=== PATIENT | female | born 1950 | race Caucasian/White ===

== ENCOUNTER 2016-06-12 15:27 | Emergency (ER) | payer MEDICARE, OTHER ==
[~2016-06-12] VITALS: Ht 167.6 cm; Wt 60.8 kg
[~2016-06-12 15:27] MED LIST: ALPR2TAB PO; ATEN-39 PO; ESCI20TA30 PO; IBAN150T3 PO; LITH300T4 PO; TRAZ-56 PO; [UNRECOGNIZED DRUG - CODE] IM; [UNRECOGNIZED DRUG - CODE] PO
[2016-06-12 15:30] VITALS: Ht 167.6 cm; Wt 60.8 kg
--- OUTSIDE RECORDS SUMMARY | 2016-06-12 15:33 | XMS REPORT | Referral Summary ---
Author Author [facility] Organization [facility] Address Unknown Phone Unavailable Care Team Providers Care Supply Assistant Name Role Phone Earl Landa Primary Care Physician [phone] Encounter VC Date(s): 11/06/14 - 11/06/14 [facility] [address] [place] [id number] Discharge Diagnosis: Skin lesion of left leg Discharge Disposition: 01-Home or Self Care Attending Physician: Valentina Hankins APRN Admitting Physician: Valentina Hankins APRN Vital Signs Most recent to 1 oldest [Reference Range]: Temperature Tympanic 36.8 degC [36.6-38.1 degC] (11/06/14 2:23 PM) Peripheral Pulse 60 bpm Rate [60-100 bpm] (11/06/14 2:23 PM) Blood Pressure 104/66 mmHg [90-140/60-90 mmHg] (11/06/14 2:23 PM) Problem List Condition Effective Dates Status Health Status Informant Acute Active pain(Confirmed) Anemia Active (disorder)(Confirmed ) Ankylosing Resolved spondylitis(Confirme d) Anxiety(Confirmed) Resolved Arthritis(Confirmed) Active patient Arthritis(Confirmed) Resolved Weakness Active generalized(Confirme d) At risk for activity Active intolerance(Confirme d)1 At risk for Active infection(Confirmed) 2 At risk of pressure Active sore(Confirmed) Atrial fibrillation Active (disorder)(Confirmed ) Atrial Resolved fibrillation(Confirm ed) Backache Active (finding)(Confirmed) Urethral Active stones(Confirmed) Chronic back Resolved pain(Confirmed) Chronic pain Active syndrome (disorder)(Confirmed ) Crohn Resolved disease(Confirmed) Crohn's disease 1985 Active (disorder)(Confirmed )3 Crohn's Active colitis(Confirmed) DDD (degenerative Active disc disease)(Confirmed) Delirium(Confirmed)4 Resolved Depression(Confirmed Resolved ) 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, draining(Confirmed) Erythema Active nodosum(Confirmed) Fibromyalgia(Confirm Resolved ed) Fractured Active pelvis(Confirmed) Generalized Active abdominal pain (finding)(Confirmed) Impaired skin Active integrity(Confirmed) 5 Kidney Resolved stones(Confirmed) Vitamin B12 Active deficiency anemia due to intrinsic factor deficiency(Confirmed ) Mitral valve Active disorder (disorder)(Confirmed ) MVP (mitral valve Active prolapse)(Confirmed) Osteoarthritis(Confi Active rmed) Osteoporosis(Confirm Resolved ed) Pernicious anemia Active (disorder)(Confirmed ) Pressure ulcer stage Active 1(Confirmed) Pyoderma Active gangrenosum(Confirme d) Scoliosis(Confirmed) Active Self -care Active deficit(Confirmed)6 Seborrheic Active keratosis(Confirmed) Stroke(Confirmed) 1999 Resolved TIA (transient 2002 Active ischemic attack)(Confirmed)7 Weight decreased Active (finding)(Confirmed) 1Problem added automatically by system based on initiation of At Risk for Activity Intolerance Plan of Care 2Problem added automatically by system based on initiation of At Risk for Infection in Nutrition Plan of Care 3[facility]erra 4hospitalization 5Problem added automatically by system based on initiation of Impaired Skin Integrity Plan of Care 6Problem added automatically by system based on initiation of Self Care Deficit Plan of Care 7CVA affected speech, L hand; fully recovered Allergies, Adverse Reactions, Alerts Substance Reaction Severity Status amoxicillin NAUSEA/VOMITING Active amoxicillin-clavulanate NAUSEA/VOMITING Active haloperidol Active lithium Itching Active Adverse Reaction LORazepam Active metroNIDAZOLE Active sulfamethoxazole Adverse Reaction Active Medications 3 CC SYRINGES WITH NEEDLES FOR VITAMIN B 12 3 CC SYRINGES WITH NEEDLES FOR VITAMIN B 12, See Instructions, USE WITH VITAMIN B 12 ONE TIME MONTHLY, # 1 boxes, 3 Refill(s), [place] [facility] [place] WITH VITAMIN B 12 ONE TIME MONTHLY Start Date: 09/20/13 Status: Ordered Brintellix 10 mg oral tablet 10 mg 1 tabs, Oral, Daily, 0 Refill(s) Start Date: 11/06/14 Status: Ordered calcium (as citrate)-vitamin D 315 mg-250 intl units oral tablet 1 tabs, Oral, BID, # 60 tabs, 0 Refill(s) Start Date: 11/06/14 Status: Ordered clonazePAM 1 mg oral tablet 1 mg 1 tabs, Oral, TID, 0 Refill(s) Start Date: 11/06/14 Status: Ordered cyanocobalamin 1000 mcg/mL injectable solution 1 mL, IntraMuscular, qMonth, # 3 mL, 3 Refill(s), Pharmacy: [facility], 1 mL IntraMuscular qMonth Start Date: 09/20/13 Status: Ordered denosumab 60 mg/mL subcutaneous solution 60 mg 1 mL, SubCutaneous, q6mo, # 1 mL, 0 Refill(s), other reason (Rx) Start Date: 11/06/14 Status: Ordered mirtazapine 15 mg oral tablet 15 mg 1 tabs, Oral, Bedtime (once a day), # 1 tabs, 0 Refill(s), other reason ( Rx) Start Date: 09/20/14 Status: Ordered temazepam 30 mg oral capsule 30 mg 1 caps, Oral, Bedtime (once a day), as needed for sleep, 0 Refill(s) Start Date: 11/06/14 Status: Ordered traZODone 50 mg oral tablet 75 mg 1.5 tabs, Oral, Bedtime (once a day), 0 Refill(s) Start Date: 11/06/14 Status: Ordered Vitamin C 500 mg oral tablet 500 mg 1 tabs, Oral, Daily, # 30 tabs, 0 Refill(s) Start Date: 11/06/14 Status: Ordered Vitamin D with Minerals oral tablet 50,000 IU, Oral, qWeek, 0 Refill(s) Start Date: 11/06/14 Status: Ordered Results No data available for this section Immunizations No data available for this section Procedures Procedure Date Related Diagnosis Body Site Shaving of epidermal or dermal lesion, single 11/06/14 lesion, trunk, arms or legs; lesion diameter 0.6 to 1.0 cm Mitral valve1, 2 2012 S/P exploratory laparotomy and ileostomy 2013 Exploratory laparotomy resection of infected 08/05/07 mesh, small bowel resection x2 with primary anastomosis, extensive lysis of adhesions History of blood transfusion 2001 History of blood transfusion 1985 4 bowel resections w/ileostomy Back3 CABG - Coronary artery bypass graft4 Cataract surgery5 Ileostomy Ileostomy S/P cardiac catheterization S/p laminectomy S/P ORIF left arm S/p total colectomy with end ileostomy Tubal ligation, bilateral [facility] 3BACK SURGERY 4in December 5left eye Social History Social History Type Response Smoking Status Former smoker; Type: Cigarettes; Tobacco use per day: Less than Pack Assessment and Plan No data available for this section
--- OUTSIDE RECORDS SUMMARY | 2016-06-12 15:33 | XMS REPORT | Referral Summary ---
Author Author [facility] Organization [facility] Address Unknown Phone Unavailable Care Team Providers Care Breakdown Mill Operator Name Role Phone Earl Landa Primary Care Physician [phone] Encounter VC Date(s): 05/09/15 - 05/09/15 [facility] [address] [place] [address] [place] [id number] Discharge Disposition: 01-Home or Self Care Attending Physician: Syed Landa MD Admitting Physician: Syed Landa MD Vital Signs Most recent to 1 oldest [Reference Range]: Temperature Tympanic 37.2 degC [36.6-38.1 degC] (05/09/15 11:13 AM) Peripheral Pulse 92 bpm Rate [60-100 bpm] (05/09/15 11:13 AM) Blood Pressure 112/82 mmHg [90-140/60-90 mmHg] (05/09/15 11:13 AM) Problem List Condition Effective Dates Status Health [...] draining(Confirmed) Erythema Active nodosum(Confirmed) Fibromyalgia(Confirm Resolved ed) Pain Active management(Confirmed ) Cervical spine Active fracture(Confirmed) Fractured Active pelvis(Confirmed) Generalized Active abdominal pain (finding)(Confirmed) Impaired skin Active integrity(Confirmed) 5 Kidney Resolved stones(Confirmed) Knowledge Active deficit(Confirmed)6 Vitamin B12 Active deficiency anemia due to intrinsic factor deficiency(Confirmed ) Mitral valve Active disorder (disorder)(Confirmed ) MVP (mitral valve Active prolapse)(Confirmed) Neck muscle Active spasm(Confirmed) Osteoarthritis(Confi Active rmed) Osteoporosis(Confirm Resolved ed) Pernicious anemia Active (disorder)(Confirmed ) Pressure ulcer stage Active 1(Confirmed) Pyoderma Active gangrenosum(Confirme d) Scoliosis(Confirmed) Active Self -care Active deficit(Confirmed)7 Seborrheic Active keratosis(Confirmed) Stroke(Confirmed) 1999 Resolved Tissue perfusion Active alteration(Confirmed )8 TIA (transient 2002 Active ischemic attack)(Confirmed)9 Weight decreased Active (finding)(Confirmed) 1Problem added automatically [...] automatically by system based on initiation of Knowledge Deficit Plan of Care 7Problem added automatically by system based on initiation of Self Care Deficit Plan of Care 8Problem added automatically by system based on initiation of Tissue Perfusion Cerebral Plan of Care 9CVA affected speech, L hand; fully recovered Allergies, Adverse Reactions, Alerts Substance Reaction Severity Status amoxicillin NAUSEA/VOMITING Active amoxicillin-clavulanate NAUSEA/VOMITING Active haloperidol Active lithium Itching Active Adverse Reaction LORazepam Active metroNIDAZOLE Active Percocet 06/3250 Active sulfamethoxazole Adverse Reaction Active 1Hallucinations Medications aspirin 325 mg oral tablet 325 mg 1 tabs, Oral, Daily, 0 Refill(s) Start Date: 03/14/15 Status: Ordered calcium (as citrate)-vitamin D 315 mg-250 intl units oral tablet 1 tabs, Oral, BID, # 60 tabs, 0 Refill(s) Start Date: 11/06/14 Status: Ordered clonazePAM 0.5 mg oral tablet 0.5 mg, Oral, BID, Anxiety, 0 Refill(s) Start Date: 03/14/15 Status: Ordered cyanocobalamin 1000 mcg/mL injectable solution 1,000 mcg, IntraMuscular, qMonth, 0 Refill(s) Start Date: 03/11/15 Status: Ordered denosumab 60 mg/mL subcutaneous solution 60 mg 1 mL, SubCutaneous, q6mo, # 1 mL, 0 Refill(s), other reason (Rx) Start Date: 11/06/14 Status: Ordered Fetzima 80 mg, Oral, Daily, 0 Refill(s) Start Date: 03/11/15 Status: Ordered Levsin SL 0.125 mg sublingual tablet 0.125 mg 1 tabs, SubLingual, q4hr, # 24 tabs, 0 Refill(s) Start Date: 04/25/15 Status: Ordered magnesium oxide 400 mg (241.3 mg elemental magnesium) oral tablet 400 mg 1 tabs, Oral, BID, 0 Refill(s) Start Date: 03/14/15 Status: Ordered metoprolol tartrate 50 mg oral tablet 50 mg 1 tabs, Oral, BID, 0 Refill(s) Start Date: 03/15/15 Status: Ordered mirtazapine 15 mg oral tablet 15 mg 1 tabs, Oral, Bedtime (once a day), # 1 tabs, 0 Refill(s), other reason ( Rx) Start Date: 09/20/14 Status: Ordered MS Contin 15 mg/12 hr oral tablet, extended release 15 mg 1 tabs, Oral, q12hr, # 20 tabs, 0 Refill(s) Start Date: 04/29/15 Status: Ordered Limestone 5 mg-325 mg oral tablet 1 tabs, Oral, q6hr, as needed for pain, # 75 tabs, 0 Refill(s) Start Date: 04/29/15 Stop Date: 05/30/15 Status: Ordered predniSONE 20 mg oral tablet 40 mg 2 tabs, Oral, Daily, # 12 tabs, 0 Refill(s) Start Date: 04/25/15 Status: Ordered temazepam 15 mg oral capsule 15 mg, Oral, Bedtime (once a day), Sleep, 0 Refill(s) Start Date: 03/14/15 Status: Ordered traZODone 50 mg oral tablet 50 mg, Oral, Bedtime (once a day), 0 Refill(s) Start Date: 03/14/15 Status: Ordered Vitamin C 500 mg oral tablet 500 mg 1 tabs, Oral, Daily, # 30 tabs, 0 Refill(s) Start Date: 11/06/14 Status: Ordered Results No data available for this section Immunizations No data available for this section Procedures Procedure Date Related Diagnosis Body Site Mitral valve1, 2 2012 S/P exploratory laparotomy and ileostomy 2012 Exploratory laparotomy resection of infected 08/05/07 mesh, small bowel resection x2 with primary anastomosis, extensive lysis of adhesions History of blood transfusion 2001 History of blood transfusion 1984 4 bowel resections w/ileostomy Back3 CABG - Coronary artery bypass graft4 Cataract surgery5 Ileostomy Ileostomy S/P cardiac catheterization S/p laminectomy S/P ORIF left arm S/p total colectomy with end ileostomy Tubal ligation, bilateral 1MITRAL VALVE REPAIR 2[facility]. [facility] 3BACK SURGERY 4in December 5left eye Social History Social History Type Response Smoking Status Former smoker; Type: Cigarettes; Tobacco use per day: Less than Pack Assessment and Plan Extracted from: Title: 2nd Prolia Author: Amanda Alvarado RN Date: 05/09/15 Pt here for 2nd Prolia injection - denies any SE from 1st injection Pt ambulatory, accompanied by a friend.
--- OUTSIDE RECORDS SUMMARY | 2016-06-12 15:33 | XMS REPORT | Referral Summary ---
Author Author [facility] Organization [facility] Address Unknown Phone Unavailable Care Team Providers Care Loan Consultant Name Role Phone Earl Landa Primary Care Physician [phone] Encounter VC Date(s): 11/21/14 - 11/21/14 [facility] [address] [place] [address] [place] [id number] Discharge Diagnosis: Keratoacanthoma of lower leg Discharge Disposition: 01-Home or Self Care Attending Physician: Jeromy Thomas MD Admitting Physician: Jeromy Thomas MD Referring Physician: Valentina Hankins APRN Vital Signs Most recent to 1 oldest [Reference Range]: Temperature Tympanic 36.8 degC [36.6-38.1 degC] (11/21/14 10:51 AM) Blood Pressure 98/60 mmHg [90-140/60-90 mmHg] (11/21/14 10:51 AM) Problem List Condition Effective Dates Status [...] for Infection in Nutrition Plan of Care 3Dr. [place] 4hospitalization 5Problem added automatically by system based [...] MONTHLY, # 1 boxes, 3 Refill(s), Pharmacy: [facility], USE WITH VITAMIN B 12 ONE [...] qMonth, # 3 mL, 3 Refill(s), Pharmacy: [facility], 1 mL IntraMuscular qMonth Start Date: [...] Tubal ligation, bilateral 1MITRAL VALVE REPAIR 2[facility] 3BACK SURGERY 4in December 5left eye Social History Social History Type Response Smoking Status Former smoker; Type: Cigarettes; Tobacco use per day: Less than Pack Assessment and Plan Extracted from: Title: Ambulatory Patient Education Author: Jeromy Thomas MD Date: [facility] Basal Cell Carcinoma Basal cell carcinoma is the most common form of skin cancer. It begins in the basal cells, which are at the bottom of the outer skin layer (epidermis). CAUSES Sun exposure is the most common cause of basal cell carcinoma. Basal cell carcinoma occurs most often on parts of the body that are frequently exposed to the sun, including the: Scalp. Ears. Neck. Face. Arms. Backs of the hands. Legs. However, basal cell carcinoma can occur anywhere on the body. Rarely, tumors develop on areas not exposed to the sun. Other causes of basal cell carcinoma can include: Exposure to arsenic. Exposure to radiation. Certain genetic syndromes, such as xeroderma pigmentosum. RISK FACTORS People at highest risk for basal cell carcinoma include those with: Fair skin. Blonde or red hair. Blue, green, or mariano eyes. Childhood freckling. Factors that increase your risk for basal cell carcinoma include: Sun exposure over long periods of time. Childhood sun exposure appears to be a more significant factor than sun exposure as an adult. Repeated sunburns. Use of tanning beds. Having a weakened immune system. SYMPTOMS Five signs of basal cell carcinoma are: An open sore that bleeds, oozes, or crusts. The sore may remain open for 3 or more weeks. This can be an early sign of basal cell carcinoma. Basal cell carcinoma can mimic a pimple that will not heal. A reddish or irritated area which may crust, itch, or cause discomfort. This may occur on areas expose d to the sun. These patches might be easier felt than seen. A shiny, pearly, or translucent bump that is pink, red, or white. The bump may also be [place], black, or brown, especially in dark haired people. These bumps can be confused with moles. A pink growth with a slightly elevated, rolled border, and a crusted indentation in the center. As the growth slowly enlarges, tiny blood vessels may develop on the surface. A scar-like white, yellow, or waxy area that looks like shiny, stretched skin. It often has irregular borders. This may be a sign of more aggressive basal cell carcinoma. DIAGNOSIS Your caregiver may be able to tell what is wrong by doing a physical exam. Often , a tissue sample (biopsy) is also taken. The tissue is examined under a microscope. TREATMENT The treatment for basal cell carcinoma depends on the type, size, location, and number of tumors. Possible treatments include: Mohs surgery. This is a procedure done by a skin doctor (food critic or Mohs surgeon) in his or her office. The cancerous cells are removed layer by layer. This treatment has a high cure rate. Surgical removal of the tumor. Freezing the tumor with liquid nitrogen (cryosurgery). Plastic surgery to remove the tumor, in the case of large tumors. Radiation. This may be used for tumors on the face. Photodynamic therapy. A chemical cream is applied to the skin and light exposure is used to activate the chemical. Chemical treatments, such as imiquimod cream and interferon injections. This may be used to remove superficial tumors with minimal scarring. Electrodesiccation and curettage. This involves alternately scraping and burning the tumor, using an electric current to control bleeding. Basal cell carcinoma can almost always be cured. It rarely spreads to other areas of the body (metastasizes). Basal cell carcinoma may come back at the same location (recur), but it can be treated again if this occurs. PREVENTION Avoid the sun between 10:00 a.m. and 4:00 pm when it is the strongest. Use a sunscreen or sunblock with a sun protection factor of 30 or greater. Apply sunscreen at least 30 minutes before exposure to the sun. Reapply sunscreen every 2 to 4 hours while you are outside, after swimming , and after excessive sweating. Always wear protective hats, clothing, and sunglasses with ultraviolet protection. Avoid tanning beds. HOME CARE INSTRUCTIONS Avoid unprotected sun exposure. Follow your caregiver's instructions for self-exams. Look for new spots or changes in your skin. Keep all follow-up appointments as directed by your caregiver. SEEK MEDICAL CARE IF: You notice any new spots or changes in your skin. You have had a basal cell carcinoma tumor removed and you notice a new growth in the same location. Document Released: 08/01/2003 Document Revised: 07/26/2012 Document Reviewed: Exit[employer] Patient Information 2015 [employer]. This information is not intended to replace advice given to you by your health care provider. Make sure you discuss any questions you have with your health care provider. No follow up information was provided.
--- OUTSIDE RECORDS SUMMARY | 2016-06-12 15:33 | XMS REPORT | Referral Summary ---
Author Author [facility] Organization [facility] Address Unknown Phone Unavailable Care Team Providers Care Restaurant Managing Partner Name Role Phone Earl Landa Primary Care Physician [phone] Encounter Date(s): 03/26/15 - 03/26/15 [facility] [address] [place] [address] Discharge Diagnosis: S/P ileostomy Discharge Diagnosis: Mass of parotid gland Discharge Diagnosis: Chronic pain syndrome Discharge Diagnosis: Cervical spine fracture Discharge Disposition: 01-Home or Self Care Attending Physician: Syed Landa MD Admitting Physician: Syed Landa MD Vital Signs Most recent to 1 oldest [Reference Range]: Temperature Tympanic 37.1 degC [36.6-38.1 degC] (03/26/15 9:58 AM) Peripheral Pulse 88 bpm Rate [60-100 bpm] (03/26/15 9:58 AM) Blood Pressure 100/50 mmHg [90-140/60-90 mmHg] (03/26/15 9:58 AM) SpO2 97 % (03/26/15 9:58 AM) Problem List Condition Effective Dates Status [...] disease)(Confirmed) Delirium(Confirmed)4 Resolved Depression(Confirmed Resolved ) 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 [place] 4hospitalization 5Problem added automatically by system based [...] metroNIDAZOLE Active sulfamethoxazole Adverse Reaction Active Medications aspirin 325 mg oral tablet 325 mg 1 tabs, Oral, Daily, 0 Refill(s) Start Date: 03/14/15 Status: Ordered calcium (as citrate)-vitamin D 315 mg-250 intl units oral tablet 1 tabs, Oral, BID, # 60 tabs, 0 Refill(s) Start Date: 11/06/14 Status: Ordered clonazePAM 0.5 mg oral tablet 0.5 mg, Oral, BID, Anxiety, 0 Refill(s) Start Date: 03/14/15 Status: Ordered Colace 100 mg oral capsule 100 mg 1 caps, Oral, BID, 0 Refill(s) Start Date: 03/14/15 Status: Ordered cyanocobalamin 1000 mcg/mL injectable solution 1,000 mcg, IntraMuscular, qMonth, 0 Refill(s) Start Date: 03/11/15 Status: Ordered denosumab 60 mg/mL subcutaneous solution 60 mg 1 mL, SubCutaneous, q6mo, # 1 mL, 0 Refill(s), other reason (Rx) Start Date: 11/06/14 Status: Ordered Dulcolax Laxative 5 mg oral delayed release tablet 5 mg 1 tabs, Oral, Daily, Constipation, 0 Refill(s) Start Date: 03/14/15 Status: Ordered Fetzima 80 mg, Oral, Daily, 0 Refill(s) Start Date: 03/11/15 Status: Ordered magnesium oxide 400 mg (241.3 mg elemental magnesium) oral tablet 400 mg 1 tabs, Oral, BID, 0 Refill(s) Start Date: 03/14/15 Status: Ordered metoprolol tartrate 50 mg oral tablet 50 mg 1 tabs, Oral, BID, 0 Refill(s) Start Date: 03/15/15 Status: Ordered Milk of Magnesia 2,400 mg 30 mL, Oral, Daily, Constipation, 0 Refill(s) Start Date: 03/14/15 Status: Ordered mirtazapine 15 mg oral tablet 15 mg 1 tabs, Oral, Bedtime (once a day), # 1 tabs, 0 Refill(s), other reason ( Rx) Start Date: 09/20/14 Status: Ordered oxyCODONE-acetaminophen 10 mg-325 mg oral tablet 2 tabs, Oral, q4hr, Pain Moderate (4-6), 0 Refill(s) Start Date: 03/14/15 Status: Ordered Pepcid 20 mg oral tablet 20 mg 1 tabs, Oral, q12hr, 0 Refill(s) Start Date: 03/14/15 Status: Ordered temazepam 15 mg oral capsule 15 mg, Oral, Bedtime (once a day), Sleep, 0 Refill(s) Start Date: 03/14/15 Status: Ordered traZODone 50 mg oral tablet 50 mg, Oral, Bedtime (once a day), 0 Refill(s) Start Date: 03/14/15 Status: Ordered Vitamin C 500 mg oral tablet 500 mg 1 tabs, Oral, Daily, # 30 tabs, 0 Refill(s) Start Date: 11/06/14 Status: Ordered Zofran 4 mg oral tablet 4 mg 1 tabs, Oral, q6hr, Nausea, 0 Refill(s) Start Date: 03/14/15 Status: Ordered Results No data available for [...] Tubal ligation, bilateral 1MITRAL VALVE REPAIR 2Dr. [facility] 3BACK SURGERY 4in December 5left eye Social History Social History Type Response Smoking Status Former smoker; Type: Cigarettes; Tobacco use per day: Less than Pack Assessment and Plan Extracted from: Title: Office Visit Note Author: Syed Landa MD Date: 03/26/15 Assessment/Plan Cervical spine fracture Chronic pain syndrome Mass of parotid gland S/P ileostomy We discussed her situation and her multiple frustrations. One of the issues is lack of a clear understanding and expectation of what's going to happen with the c-collar. She has some claustrophobia related to this. I advised that this will need to be clarified by Dr. Garcia. My understanding is the c-collar needs to remain in place at all times until she sees him back which is scheduled in 6 weeks. I asked the nursing staff to call and clarify with Dr. Garcia regarding the c-collar. She's also somewhat frustrated about various aspects of nursing care. To some degree, or frustrations may be a bit unreasonable and we discussed that. It is hard for her to take care of her own stoma and it seems reasonable that the staff should help with that. Her pain management is also a bit of a challenge because she probably has some tolerance related to previous chronic pain issues. I wrote an order requesting that the D ON review her care and hopefully they can come to some understanding which is more satisfactory to her. When the brace is removed and further follow-up is possible, she will need additional evaluation of the mass is identified in the right parotid gland. I understand that the district medical examiner will continue to be providing her cares longer she is at [facility], and I can assume care when she returns to the community. We discussed adding whether she would be able to manage with home health. I'm somewhat pessimistic about her being successful until the col la r is fully removed with independent management even with home health support. We will send a copy of the dictation to [facility].
--- OUTSIDE RECORDS SUMMARY | 2016-06-12 15:33 | XMS REPORT | Continuity of Care Document ---
Author Author Claude Zuniga MA, VC Ambulatory Address Unknown Phone Unavailable Care Team Providers Care Commissions Specialist Name Role Phone Syed Landa PP Unavailable Payers Payer name Insurance type Covered libertarian ID Authorization(s) Unknown Problems Condition Effective Dates (start - stop) Clinical Status Myalgia and myositis, unspecified - *Chronic Depression - *Chronic Regional enteritis of unspecified site - *Chronic Transient Ischemic Attack - *Chronic Myalgia and myositis, unspecified - Chronic Depression - Chronic Regional enteritis of unspecified site - Chronic Transient Ischemic Attack - Chronic Loss of weight - *Chronic Anemia - *Acute Depression - *Chronic CHRONIC PAIN SYNDROME - *Chronic Osteoporosis, unspecified - *Chronic Fibromyalgia - *Chronic Backache - *Acute Depression - *Chronic Loss of weight - *Acute Fatigue / Malaise - Acute Exacerbation Depression - *Fair Control Loss of weight - *Acute Weakness generalized - *Acute Mitral Regurgitation, Non-Rheum - *Chronic Vitamin B12 deficiency anemia due to intrinsic fac - *Chronic Crohns disease - *Chronic Personal history of unspecified digestive disease - *Chronic Abdominal pain, generalized - *Acute Abnormal EKG - *Acute ANXIETY STATE NOS - 311 - DEPRESSIVE DISORDER NEC - MITRAL VALVE DISORDER - MYALGIA AND MYOSITIS NOS - Anemia - *Acute Other seborrheic keratosis - *Chronic Regional enteritis of unspecified site - *Chronic TIA (transient ischemic attack) - *Resolved Abdominal pain, generalized - *Chronic Intermittent atrial fibrillation - *Chronic Depression - *Stable Fatigue, unspecified - *Acute Fractured pelvis - *Acute Pelvic fracture - *Acute CHRONIC PAIN SYNDROME - *Chronic Myalgia and myositis, unspecified - *Chronic Back pain - *Chronic Backache - *Chronic CHRONIC PAIN SYNDROME - *Chronic Mitral Regurgitation, Non-Rheum - *Controlled Pelvic fracture - Improved Family History Family Member Diagnosis Age At Onset Status Brother (Unknown) Hypertension Yes Father (Unknown) Hypertension Yes Father (Unknown) Cancer Yes Mother (Unknown) Cancer Yes Social History Social History Element Description Quantity Unknown Allergies, Adverse Reactions, Alerts Substance Reaction Severity Status AMOXICILLIN TRIHYDRATE NAUSEA/VOMITING Unknown POTASSIUM CLAVULANATE NAUSEA/VOMITING Unknown METRONIDAZOLE Unknown METRONIDAZOLE HCL Unknown SULFA (SULFONAMIDE ANTIBIOTICS) Unknown PROPOXYPHENE NAPSYLATE Unknown LORAZEPAM Unknown LORAZEPAM Unknown HALOPERIDOL Unknown HALOPERIDOL LACTATE Unknown LITHIUM Itching Unknown Medications Medication Instructions Dosage Effective Dates (start - stop) Status amiodarone 200 mg tablet take 1 tablet (200MG) by oral route 1 a day - Active Vitamin B-12 1,000 mcg/mL injection solution inject 1 milliliter (1000MCG) by intramuscular route every day month - Active trazodone 50 mg tablet take 1 AND 1/2 TABLET AT HS - Active Lexapro 20 mg tablet take 1 tablet (20MG) by oral route every day 20 MG - Active alprazolam 2 mg tablet take 1 tablet (2MG) by oral route every 6 hours PRN anxiety 2 MG - Active temazepam 15 mg capsule take 1 capsule (15MG) by oral route every day at bedtime as needed(along with 30 mg tablet for total dose of 45 mg) 15 MG - Active temazepam 30 mg capsule take 1 capsule (30MG) by oral route every day at bedtime(Take with 15 mg for total 45 mg daily) - Active ferrous sulfate 325 mg (65 mg iron) tablet take 1 Tablet by Oral route 2 times every day 0 - Active Xarelto 15 mg tablet take 1 by Oral route every evening for blood thinner 0 - Active Reclast 5 mg/100 mL intravenous solution instill 5 Milligram by Intravenous route every year 2nd year given 04/25/2013 0 - Active metoprolol tartrate 25 mg tablet take 0.5 Tablet (12.5MG) by oral route 2 times every day 12.5 MG - Active Prilosec 40 mg capsule,delayed release take 1 capsule (40MG) by oral route every day before a meal 40 MG - Active Immunizations Vaccine Date Status Comments Unknown Results Test Name Date and Time Measure Units Reference Range Abnormal Flag Comments Unknown Vital Signs Date / Time: Height Weight Pulse Rate Blood Pressure Temperature /13:57:00 66.00 in 101.00 lbs 64 /min 98/60 mm[Hg] Procedures Procedure Date Unknown Encounters Encounter Location Date Patient Visit [facility] Patient Visit [facility] Patient Visit [facility] Patient Visit [facility] Patient Visit [facility] Patient Visit [facility] Patient Visit [facility] Patient Visit [facility] Patient Visit [facility] Patient Visit [facility] Patient Visit [facility] Patient Visit [facility] Patient Visit [facility] Patient Visit [facility] Patient Visit [facility] Patient Visit [facility] Advance Directives Directive Effective Date Unknown
--- OUTSIDE RECORDS SUMMARY | 2016-06-12 15:34 | XMS REPORT | Referral Summary ---
Author Author [facility] Organization [facility] Address Unknown Phone Unavailable Care Team Providers Care Inclusion Manager Name Role Phone Earl Landa Primary Care Physician [phone] Encounter VC Date(s): 06/20/15 - 06/20/15 [facility] [address] [place] [id number] Discharge Disposition: 01-Home or Self Care Attending Physician: Lex Johnson APRN Admitting Physician: Lex Johnson APRN Vital Signs Most recent to 1 oldest [Reference Range]: Peripheral Pulse 73 bpm Rate [60-100 bpm] (06/20/15 10:31 AM) Respiratory Rate 18 br/min [14-20 br/min] (06/20/15 10:31 AM) Blood Pressure 128/70 mmHg [90-140/60-90 mmHg] (06/20/15 10:31 AM) SpO2 97 % (06/20/15 10:31 AM) Problem List Condition Effective Dates Status [...] sulfamethoxazole Adverse Reaction Active 1Hallucinations Medications aspirin 81 mg, Oral, Daily, 0 Refill(s) Start Date: 06/20/15 Status: Ordered calcium (as citrate)-vitamin D 315 mg-250 intl units oral tablet 1 tabs, Oral, BID, # 60 tabs, 0 Refill(s) Start Date: 11/06/14 Status: Ordered clonazePAM 0.5 mg oral tablet 0.5 mg, Oral, BID, Anxiety, 0 Refill(s) Start Date: 03/14/15 Status: Ordered cyanocobalamin 1000 mcg/mL injectable solution 1,000 mcg 1 mL, IntraMuscular, qMonth, # 1 mL, 11 Refill(s), Pharmacy: [facility], 1 mL IntraMuscular qMonth Start Date: 06/03/15 Status: Ordered denosumab 60 mg/mL subcutaneous solution 60 mg 1 mL, SubCutaneous, q6mo, # 1 mL, 0 Refill(s), other reason (Rx) Start Date: 11/06/14 Status: Ordered Fetzima 80 mg, Oral, Daily, 0 Refill(s) Start Date: 03/11/15 Status: Ordered Levsin SL 0.125 mg sublingual tablet 0.125 mg 1 tabs, SubLingual, q4hr, # 24 tabs, 0 Refill(s) Start Date: 04/25/15 Status: Ordered metoprolol tartrate 50 mg oral [...] 0 Refill(s) Start Date: 04/29/15 Status: Ordered temazepam 15 mg oral capsule [...] Refill(s) Start Date: 11/06/14 Status: Ordered Results Hematology Most recent to 1 oldest [Reference Range]: WBC [4.8-10.8 6.5 10*3/uL 10*3/uL] (06/20/15 12:11 PM) RBC [4.00-5.20] 3.78 *LOW* (06/20/15) Hgb [12.0-16.0 11.2 gm/dL gm/dL] *LOW* (06/20/15) Hct [37.0-47.0 %] 35.9 % *LOW* (06/20/15) MCV [82.0-99.0 fL] 95.0 fL (06/20/15) MCH [27.0-32.0 pg] 29.6 pg (06/20/15 PM) MCHC [32.0-36.0 31.2 gm/dL gm/dL] *LOW* (06/20/15) RDW [11.5-14.5 %] 12.6 % (06/20/15) Platelet [150-400 180 10*3/uL 10*3/uL] (06/20/15) MPV [8.8-14.8 fL] 10.1 fL (06/20/15) Immature 0.2 % Granulocytes (06/20/15) [0.0-1.0 %] Neutrophils [51-75 72 % %] (06/20/15) Lymphocytes [20-46 15 % %] *LOW* (06/20/15) Monocytes [4-11 %] 10 % (06/20/15) Eosinophils [0-4 %] 3 % (06/20/15) Basophils [0-2 %] 0 % (06/20/15) Neutro Absolute 4.68 10*3 [1.90-7.00 10*3] (06/20/15 PM) Lymph Absolute 1.00 10*3 [0.80-3.30 10*3] (06/20/15 PM) Creek Absolute 0.63 10*3 [0.30-1.00 10*3] (06/20/15 PM) Eos Absolute 0.17 10*3 [0.00-0.50 10*3] (06/20/15 PM) Baso Absolute 0.02 10*3 [0.00-0.20 10*3] (06/20/15 12: PM) Chemistry Most recent to 1 oldest [Reference Range]: Sodium Lvl [135-144 141 mEq/L mEq/L] (06/20/15 PM) Potassium Lvl 4.6 mEq/L [3.5-5.2 mEq/L] (06/20/15 PM) Chloride [99-111 107 mEq/L mEq/L] (06/20/15 PM) CO2 [22-31 mEq/L] 28 mEq/L (06/20/15 PM) AGAP [3-20] 6 (06/20/15 PM) BUN [10-20 mg/dL] 13 mg/dL (06/20/15 PM) Glucose Lvl [70-99 81 mg/dL mg/dL] (06/20/15 PM) Creatinine Lvl 1.16 mg/dL [0.57-1.11 mg/dL] *HI* (06/20/15 PM) eGFR [>60 mL/min] 47 mL/min 1 *ABN* (06/20/15: PM) Calcium Lvl 9.1 mg/dL [8.9-10.5 mg/dL] (06/20/15: PM) 1Result Comment: Multiply eGFR results by 1.21 for race. Urinalysis Most recent to 1 oldest [Reference Range]: UA Color Yellow (06/20/15:35 PM) UA Appear Clear (06/20/15:35 PM) UA pH [5.0-8.0] 5.5 (06/20/15 12:35 PM) UA Leuk Est Negative [Negative] (06/20/15 12:35 PM) UA Nitrite Negative [Negative] (06/20/15 12:35 PM) UA Protein Negative [Negative] (06/20/15 12:35 PM) UA Glucose Negative [Negative] (06/20/15 12:35 PM) UA Ketones Negative [Negative] (06/20/15 12:35 PM) UA Urobilinogen 0.2 mg/dL [<1.0 mg/dL] (5/12/16 12:35 PM) UA Bili [Negative] Negative (06/20/15 12:35 PM) UA Blood [Negative] Negative (06/20/15 12:35 PM) UA Spec Grav 1.016 [1.003-1.030] (06/20/15 12:35 PM) Type Clean Catch (06/20/15 12:35 PM) Immunizations No data available for this section [...] Tubal ligation, bilateral 1MITRAL VALVE REPAIR 2Dr. Galina 3BACK SURGERY 4in December 13left eye Social History Social History Type Response Smoking Status Former smoker; Type: Cigarettes; Tobacco use per day: Less than Pack Assessment and Plan No data available for this section
--- OUTSIDE RECORDS SUMMARY | 2016-06-12 15:34 | XMS REPORT | Referral Summary ---
Author Author [facility] Organization [facility] Address Unknown Phone Unavailable Care Team Providers Care Commercial Hvac Service Technician Name Role Phone Earl Landa Primary Care Physician [phone] Encounter VC Date(s): 12/11/14 - 12/11/14 [facility] [address] [place] [id number] Discharge Diagnosis: Periorbital swelling Discharge Disposition: 01-Home or Self Care Attending Physician: Lex Johnson APRN Admitting Physician: Lex Johnson APRN Vital Signs Most recent to 1 oldest [Reference Range]: Temperature Tympanic 36.2 degC [36.6-38.1 degC] *LOW* (12/11/14 10:37 AM) Peripheral Pulse 72 bpm Rate [60-100 bpm] (12/11/14 10:37 AM) Respiratory Rate 18 br/min [14-20 br/min] (12/11/14 10:37 AM) Blood Pressure 102/62 mmHg [90-140/60-90 mmHg] (12/11/14 10:37 AM) Problem List Condition Effective Dates Status [...] MONTHLY, # 1 boxes, 3 Refill(s), Pharmacy: [facility], USE WITH VITAMIN B 12 ONE TIME MONTHLY Start Date: 09/20/13 Status: Ordered calcium (as citrate)-vitamin D 315 mg-250 intl units oral tablet 1 tabs, Oral, BID, # 60 tabs, 0 Refill(s) Start Date: 11/06/14 Status: Ordered clonazePAM 1 mg oral tablet 1 mg 1 tabs, Oral, TID, 0 Refill(s) Start Date: 11/06/14 Status: Ordered cyanocobalamin 1000 mcg/mL injectable solution 1 mL, IntraMuscular, qMonth, # 3 mL, 3 Refill(s), Pharmacy: [facility], 1 mL IntraMuscular qMonth Start Date: [...] Refill(s) Start Date: 11/06/14 Status: Ordered Results Chemistry Most recent to 1 oldest [Reference Range]: Sodium Lvl [135-144 143 mEq/L mEq/L] (12/11/14 11:47 AM) Potassium Lvl 4.1 mEq/L [3.5-5.2 mEq/L] (12/11/14 11:47 AM) Chloride [99-111 105 mEq/L mEq/L] (12/11/14 11:47 AM) CO2 [22-31 mEq/L] 30 mEq/L (12/11/14 11:47 AM) AGAP [3-20] 8 (12/11/14 11:47 AM) BUN [10-20 mg/dL] 8 mg/dL *LOW* (12/11/14 11:47 AM) Glucose Lvl [70-99 89 mg/dL mg/dL] (12/11/14 11:47 AM) Creatinine Lvl 1.09 mg/dL [0.57-1.11 mg/dL] (12/11/14 11:47 AM) eGFR [>60 mL/min] 50 mL/min 1 *ABN* (12/11/14 11:47 AM) Calcium Lvl 9.7 mg/dL [8.9-10.5 mg/dL] (12/11/14 11:47 AM) 1Result Comment: Multiply eGFR results by 1.21 for race. Immunizations No data available for this section [...] REPAIR 2Dr. Galina 3BACK SURGERY 4in December 5left eye Social History Social History Type Response Smoking Status Former smoker; Type: Cigarettes; Tobacco use per day: Less than Pack Assessment and Plan No data available for this section
--- OUTSIDE RECORDS SUMMARY | 2016-06-12 15:34 | XMS REPORT | Referral Summary ---
Author Author [facility] Organization [facility] Address Unknown Phone Unavailable Care Team Providers Care Legal Paraprofessional Name Role Phone Earl Landa Primary Care Physician [phone] Encounter Date(s): 11/21/14 - 11/21/14 [facility] [address] [place] [address] [place] [address] Discharge Diagnosis: Keratoacanthoma of lower leg Discharge Diagnosis: Leg skin lesion, left Discharge Disposition: 01-Home or Self Care Attending [...] 0 Refill(s) Start Date: 04/29/15 Status: Ordered predniSONE 20 mg oral tablet [...] Procedures Procedure Date Related Diagnosis Body Site Excision, benign lesion including margins, 11/21/14 except skin tag (unless listed elsewhere), trunk, arms or legs; excised diameter 1.1 to 2.0 cm Repair, intermediate, wounds of scalp, 11/21/14 axillae, trunk and/or extremities (excluding hands and feet); 2.5 cm or less Mitral valve1, 2 2012 S/P exploratory laparotomy [...] Tubal ligation, bilateral 1MITRAL VALVE REPAIR 2[facility] 3BACK SURGERY 4in December 13left eye Social History Social History Type Response Smoking Status Former smoker; Type: Cigarettes; Tobacco use per day: Less than Pack Assessment and Plan Extracted from: Title: Ambulatory Patient Education Author: Jeromy Thomas MD Date: Family Medicine Basal Cell Carcinoma Basal cell carcinoma is [...] a procedure done by a skin doctor (automotive exhaust emissions technician or Mohs surgeon) in his or her [...] Released: 08/01/2003 Document Revised: 07/26/2012 Document Reviewed: [facility] Patient Information 2015 [employer] [facility]. This information is not intended to replace advice given to you by your health care provider. Make sure you discuss any questions you have with your health care provider. No follow up information was provided. Extracted from: Title: Office Visit Note Author: Jeromy Thomas MD Date: 11/21/14 Assessment/Plan Keratoacanthoma of lower leg Orders: Office Visit Level 1 New [address] Plan: Excisional biopsy. I did review the patient's chart including office note performed by PCPs feather trimmer from November 12, 2014. Reviewed shave biopsy resultfrom November 06, 2014revealing atypical squamous proliferation suggestive of a keratoacanthoma. I informed the patient that it wouldbemy recommendation that we go ahead and proceed with excisional biopsy of this area of concern. Patient understood and wished to proceed. The area of concern was prepped and draped in sterile fashion. One percent lidocaine with epinephrine was injected circumferentially around the skin lesion. The lesion was excised in a standard elliptical fashion. The elliptical incision was 1.2 cm in width and 2.5 cm in length. Hemostasis obtained with electrocautery. Edges of the incision was undermined to facilitate closure. The incision was closed in layers with 4-0 Vicryl subcuticular stitches and 4-0 Prolene for skin edges. The patient was given post excision instruction and told to return to the clinic in 2-3 weeks, or sooner if any concerns arise.
--- OUTSIDE RECORDS SUMMARY | 2016-06-12 15:34 | XMS REPORT | Continuity of Care Document ---
Author Author Joyce Rodriguez RN, VC Ambulatory Address [address] [place] [id number] Phone Unavailable Care Team Providers Care Plant Operations Engineer Name Role Phone Syed Landa PP Unavailable Payers Payer name Insurance type Covered democrat ID Authorization(s) Unknown Problems Condition Effective Dates (start - stop) Clinical Status Anemia - *Acute Other seborrheic keratosis - *Chronic Regional enteritis of unspecified site - *Chronic TIA (transient ischemic attack) - *Resolved Abdominal pain, generalized - *Chronic Intermittent atrial fibrillation - *Chronic Depression - *Stable Fibromyalgia - *Chronic Osteoporosis, unspecified - *Chronic CHRONIC PAIN SYNDROME - *Chronic Depression - *Chronic Fatigue / Malaise - Acute Exacerbation Loss of weight - *Acute Depression - *Chronic Backache - *Acute Crohns disease - *Chronic Vitamin B12 deficiency anemia due to intrinsic fac - *Chronic Mitral Regurgitation, Non-Rheum - *Chronic Weakness generalized - *Acute Loss of weight - *Acute Depression - *Fair Control Pelvic fracture - *Acute Pelvic fracture - Improved Mitral Regurgitation, Non-Rheum - *Controlled CHRONIC PAIN SYNDROME - *Chronic Backache - *Chronic Fractured pelvis - *Acute Fatigue, unspecified - *Acute Abnormal EKG - *Acute Back pain - *Chronic Myalgia and myositis, unspecified - *Chronic CHRONIC PAIN SYNDROME - *Chronic MYALGIA AND MYOSITIS NOS - MITRAL VALVE DISORDER - 311 - DEPRESSIVE DISORDER NEC - ANXIETY STATE NOS - Family History Family Member Diagnosis Age At Onset Status Unknown Social History Social History Element Description Quantity Unknown Allergies, Adverse Reactions, Alerts Substance Reaction Severity Status AMOXICILLIN TRIHYDRATE NAUSEA/VOMITING Unknown POTASSIUM CLAVULANATE NAUSEA/VOMITING Unknown METRONIDAZOLE Unknown METRONIDAZOLE HCL Unknown SULFA (SULFONAMIDE ANTIBIOTICS) Unknown PROPOXYPHENE NAPSYLATE Unknown LORAZEPAM Unknown LORAZEPAM Unknown HALOPERIDOL Unknown HALOPERIDOL LACTATE Unknown LITHIUM Itching Unknown Medications Medication Instructions Dosage Effective Dates (start - stop) Status trazodone 50 mg tablet take 1 AND 1/2 TABLET AT HS - Active Reclast 5 mg/100 mL intravenous solution instill 5 Milligram by Intravenous route every year Given 04/19/2012 0 - Active Lexapro 20 mg tablet take [...] for total 45 mg daily) - Active amiodarone 200 mg tablet take 1 tablet (200MG) by oral route 2 times every day 200 MG - Active ferrous sulfate 325 mg (65 mg iron) tablet take 1 Tablet by Oral route 2 times every day 0 - Active Xarelto 15 mg tablet take 1 by Oral route every evening for blood thinner 0 - Active metoprolol tartrate 25 mg tablet take 0.5 Tablet (12.5MG) by oral route 2 times every day 12.5 MG - Active cephalexin 500 mg capsule take 1 capsule (500MG) by oral route every 6 hours 500 MG - Active Diflucan 150 mg tablet take 1 tablet (150MG) by oral route once 150 MG - Active Immunizations Vaccine Date Status Comments Unknown Results Test Name Date and Time Measure Units Reference Range Abnormal Flag Comments Panel Description: CBC WBC 15:22:00 6.6 K/uL 4.8-10.8 RBC 15:22:00 4.02 M/uL 4.00-5.20 HGB 15:22:00 11.7 g/dl 12.0-16.0 L HCT 15:22:00 37.0 % 37.0-47.0 MCV 15:22:00 92.0 fL 82.0-99.0 MCH 15:22:00 29.1 pg 27.0-32.0 MCHC 15:22:00 31.6 g/dL 32.0-36.0 L RDW 15:22:00 14.1 % 11.5-14.5 MPV 15:22:00 11.4 fL 8.8-14.8 Platelet Count 15:22:00 201 K/uL 150-400 Immature Granulocytes 15:22:00 0.2 % 0.0-1.0 Absolute Neutrophils 15:22:00 4.75 THOUS 1.90-7.00 Absolute Lymphocytes 15:22:00 0.99 THOUS 0.80-3.30 Absolute Monocytes 15:22:00 0.66 THOUS 0.30-1.00 Absolute Eosinophils 15:22:00 0.18 THOUS 0.00-0.50 Absolute Basophils 15:22:00 0.02 THOUS 0.00-0.20 Neutrophils 15:22:00 72 % 51-75 Lymphocytes 15:22:00 15 % 20-46 L Monocytes 15:22:00 10 % 4-11 Eosinophils 15:22:00 3 % 0-4 Basophils 15:22:00 0 % 0-2 Testing performed at [facility] [address] [facility] [address] Sample Patternmaker Jesus Thomas MD Vital Signs Date / Time: Height Weight Pulse Rate Blood Pressure Temperature /13:30:00 66.00 in 111.00 lbs 66 /min 98/62 mm[Hg] 98.7 F Procedures Procedure Date Unknown Encounters Encounter Location Date [facility] Patient Visit [facility] Patient Visit [facility] Patient Visit [facility] Patient Visit [facility] Patient Visit [facility] Patient Visit [facility] Patient Visit [facility] Patient Visit [facility] Patient Visit [facility] Patient Visit [facility] Patient Visit [facility] Patient Visit [facility] Advance Directives Directive Effective Date Unknown
--- OUTSIDE RECORDS SUMMARY | 2016-06-12 15:35 | XMS REPORT | Referral Summary ---
Author Author [facility] Organization [facility] Address Unknown Phone Unavailable Care Team Providers Care Tare Weigher Name Role Phone Earl Landa Primary Care Physician [phone] Encounter VC Date(s): 11/06/14 - 11/06/14 [facility] [address] [place] [address] [place] [id number] Discharge Disposition: 01-Home or Self Care Attending Physician: Syed Landa MD Admitting Physician: Syed Landa MD Vital Signs Most recent to 1 oldest [Reference Range]: Temperature Tympanic 36.8 degC [36.6-38.1 degC] (11/06/14 3:21 PM) Peripheral Pulse 60 bpm Rate [60-100 bpm] (11/06/14 3:21 PM) Blood Pressure 104/66 mmHg [90-140/60-90 mmHg] (11/06/14 3:21 PM) Problem List Condition Effective Dates Status [...] Infection in Nutrition Plan of Care 3Dr. Serena 4hospitalization 5Problem added automatically by system based [...] MONTHLY, # 1 boxes, 3 Refill(s), Pharmacy: [facility], USE WITH VITAMIN B 12 ONE [...] qMonth, # 3 mL, 3 Refill(s), Pharmacy: [facility], 1 mL IntraMuscular qMonth Start Date: [...] Tubal ligation, bilateral 1MITRAL VALVE REPAIR 2Dr. Kicha 3BACK SURGERY 4in December 5left eye Social History Social History Type Response Smoking Status Former smoker; Type: Cigarettes; Tobacco use per day: Less than Pack Assessment and Plan Extracted from: Title: Prolia inj Author: Amanda Alvarado RN Date: 11/06/14 1st prolia injection given SC in rt upper leg. Pt denies any SE. Pt instruction leaflet in package reviewed with pt.
--- OUTSIDE RECORDS SUMMARY | 2016-06-12 15:35 | XMS REPORT | Referral Summary ---
Author Author [facility] Organization [facility] Address Unknown Phone Unavailable Care Team Providers Care Skidder Runner Name Role Phone Earl Landa Primary Care Physician [phone] Encounter Date(s): 11/06/14 - 11/06/14 [facility] [address] [place] [address] Discharge Diagnosis: Skin lesion of [...] 0 Refill(s) Start Date: 04/29/15 Status: Ordered [place] 5 mg-325 mg oral tablet 1 tabs, [...]
--- OUTSIDE RECORDS SUMMARY | 2016-06-12 15:35 | XMS REPORT | Referral Summary ---
Author Author [facility] Organization [facility] Address Unknown Phone Unavailable Care Team Providers Care Marine Welder Name Role Phone Earl Landa Primary Care Physician [phone] Encounter [facility] [id number] Date(s): 04/16/15 - 04/16/15 [facility] [address] [place] [address] Discharge Disposition: 01-Home or Self Care Attending Physician: Kevin Garcia III, MD Admitting Physician: Kevin Garcia III, MD Vital Signs No data available for this section Problem List Condition Effective Dates Status Health [...] ligation, bilateral 1MITRAL VALVE REPAIR 2[facility]. Galina [facility] 5left [facility] Social History Social History Type Response Smoking Status Former smoker; Type: Cigarettes; Tobacco use per day: Less than Pack Assessment and Plan No data available for this section
--- OUTSIDE RECORDS SUMMARY | 2016-06-12 15:35 | XMS REPORT ---
Author Author Manjinder Alvarado Organization [employer] Address Unknown Phone Unavailable Care Team Providers Care Oil Pit Attendant Name Role Phone Manjinder Alvarado CP Unavailable Allergies No Known Allergies Problems Problem Type Condition Code Onset Dates Condition Status Problem S/P Mitral Valve Replacement V43.3 Active Problem Fibromyalgia 729.1 Active Problem Abnormal EKG 794.31 Active Problem S/P mitral valve repair Z98.89 Active Problem Atrial fibrillation I48.91 Active Problem Mitral regurgitation I34.0 Active Problem Osteoarthrosis involving multiple sites, but not specified as generalized 715.89 Active Problem 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
--- OUTSIDE RECORDS SUMMARY | 2016-06-12 15:35 | XMS REPORT | Referral Summary ---
Author Author [facility] Organization [facility] Address Unknown Phone Unavailable Care Team Providers Care General Manager Food Name Role Phone Earl Landa Primary Care Physician [phone] Encounter Date(s): 11/09/14 - 11/09/14 [facility] [address] [place] [address] Discharge Diagnosis: Keratoacanthoma Discharge Disposition: 01-Home or Self Care Attending Physician: Valentina Hankins APRN Admitting Physician: Valentina Hankins APRN Vital Signs Most recent to 1 oldest [Reference Range]: Temperature Tympanic 36.8 degC [36.6-38.1 degC] (11/09/14 3:00 PM) Peripheral Pulse 60 bpm Rate [60-100 bpm] (11/09/14 3:00 PM) Blood Pressure 104/66 mmHg [90-140/60-90 mmHg] (11/09/14 3:00 PM) Problem List Condition Effective Dates Status [...] 0 Refill(s) Start Date: 04/29/15 Status: Ordered Spencer 5 mg-325 mg oral tablet 1 tabs, [...] Tubal ligation, bilateral 1MITRAL VALVE REPAIR 2Dr. [facility] 3BACK SURGERY 4in December 5left eye Social History Social History Type Response Smoking Status Former smoker; Type: Cigarettes; Tobacco use per day: Less than Pack Assessment and Plan No data available for this section
--- OUTSIDE RECORDS SUMMARY | 2016-06-12 15:35 | XMS REPORT ---
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 Problem Fibromyalgia 729.1 Active Problem Mitral regurgitation I34.0 Active Problem S/P mitral valve repair Z98.89 Active Problem Pre-operative cardiovascular examination Z01.810 Active Problem CVA 434.91 Active Problem Osteoarthrosis involving multiple sites, but not specified as generalized 715.89 Active Problem Atrial fibrillation I48.91 Active Problem CVA (cerebral vascular accident) I63.9 Active Problem Mitral Regurgitation 424.0 Active Problem Mitral Valve Prolapse 424.0 Active Problem Atrial fibrillation 427.31 Active Problem Idiopathic osteoporosis 733.02 Active Problem S/P Mitral Valve Replacement V43.3 Active Medications No Known Medications Results No Known Results Summary Purpose [employer] Submission
--- OUTSIDE RECORDS SUMMARY | 2016-06-12 15:35 | XMS REPORT | Referral Summary ---
Author Author [facility] Organization [facility] Address Unknown Phone Unavailable Care Team Providers Care Primer Inserting Machine Operator Name Role Phone Earl Landa Primary Care Physician [phone] Encounter VC Date(s): 09/20/14 - 09/20/14 [facility] [address] [place] [address] Discharge Diagnosis: Osteoporosis Discharge Diagnosis: Osteoporosis Discharge Disposition: 01-Home or Self Care Attending Physician: Syed Landa MD Admitting Physician: Syed Landa MD Vital Signs Most recent to 1 oldest [Reference Range]: Temperature Tympanic 35.9 degC [36.6-38.1 degC] *LOW* (09/20/14 11:26 AM) Peripheral Pulse 62 bpm Rate [60-100 bpm] (09/20/14 11:26 AM) Blood Pressure 100/58 mmHg [90-140/60-90 mmHg] (09/20/14 11:26 AM) Problem List Condition Effective Dates Status [...] Visit Note Author: Syed Landa MD Date: 09/21/14 Assessment/Plan Osteoporosis Osteoporosis Counseling provided as discussed above.
--- OUTSIDE RECORDS SUMMARY | 2016-06-12 15:35 | XMS REPORT | Referral Summary ---
Author Author [facility] Organization [facility] Address Unknown Phone Unavailable Care Team Providers Care Federal District Clerk Name Role Phone Earl Landa Primary Care Physician [phone] Encounter VC Date(s): 11/09/14 - 11/09/14 [facility] [address] [place] [address] Discharge Disposition: 01-Home or Self Care [...] MONTHLY, # 1 boxes, 3 Refill(s), Pharmacy: [facility], USE WITH VITAMIN B 12 ONE [...] qMonth, # 3 mL, 3 Refill(s), Pharmacy: [facility], 1 mL IntraMuscular qMonth Start Date: [...] Tubal ligation, bilateral 1MITRAL VALVE REPAIR 2Dr. [facility] 3BACK SURGERY 4in December 5left eye Social History Social History Type Response Smoking Status Former smoker; Type: Cigarettes; Tobacco use per day: Less than Pack Assessment and Plan No data available for this section
--- OUTSIDE RECORDS SUMMARY | 2016-06-12 15:36 | XMS REPORT | Referral Summary ---
Author Author [facility] Organization [facility] Address Unknown Phone Unavailable Care Team Providers Care Truck Crane Operator Name Role Phone Earl Landa Primary Care Physician [phone] Encounter VC Date(s): 07/18/15 - 07/18/15 [facility] [address] [place] [address] Discharge Diagnosis: Chronic pain syndrome Discharge Diagnosis: Ileostomy status Discharge Diagnosis: Cervical spine fracture Discharge Disposition: 01-Home or Self Care Attending Physician: Syed Landa MD Admitting Physician: Syed Landa MD Vital Signs Most recent to 1 oldest [Reference Range]: Temperature Tympanic 37.1 degC [36.6-38.1 degC] (07/18/15 3:48 PM) Peripheral Pulse 78 bpm Rate [60-100 bpm] (07/18/15 3:48 PM) Blood Pressure 101/70 mmHg [90-140/60-90 mmHg] (07/18/15 3:48 PM) Problem List Condition Effective Dates Status [...] lysis of adhesions History of blood transfusion 2002 History of blood transfusion 1985 4 bowel [...] Pack Assessment and Plan Extracted from: Title: Post ER/Postoperative Follow Author: Syed Landa MD Date: 07/18/15 Up Impression and Plan Diagnosis Chronic pain syndrome ([id number] G89.4, Discharge, Medical). Cervical spine fracture (BNU76-UU S12.9XXA, Discharge, Medical). Ileostomy status (LAR35-IF Z93.2, Discharge, Medical). Plan: Today's visit qualifies for a face to face visit on 07/18/15 for the purpose of home health. The encounter was in whole or in part related to the primary need for home health which is self care following C-spine surgery, especially for ostomy care and strengthening and we are requesting nursing and physical therapy services which are needed because of history of C-spine fracture and C-spine fusion and the need to wear a hard C-collar for at least 6 to 8 weeks. With her neck in the C-collar she is unable to look down and provide self care for the ostomy. She is homebound because she needs a walker and it is a consideriably taxing effect to leave home. Regarding chronic pain management, I was unable really to assess her current regimen. I think she will need to continue on some long-term narcotic but need to verify her current doses. We will unable to get those records today. She reports she has enough to make it until next Wednesday and has a ride to come in for another appointment at that time. We will make room and her schedule to reevaluate at that time and hopefully can obtain old records by then. Regarding prior CT finding of parotid mass, clinically she seems to be doing well and due to the c-collar we're still limited in options for repeat imaging and management. We discussed this briefly and she is comfortable continuing to defer evaluation and management until she gets out of the c-collar..
--- OUTSIDE RECORDS SUMMARY | 2016-06-12 15:36 | XMS REPORT | Referral Summary ---
Author Author [facility] Organization [facility] Address Unknown Phone Unavailable Care Team Providers Care Agricultural Loan Officer Name Role Phone CurtisshaiEarl Primary Care Physician [phone] Encounter VC Date(s): 04/25/15 - 04/25/15 [facility] [address] [place] [address] [phone] Discharge Diagnosis: Exacerbation of Crohn's disease Discharge Diagnosis: Abdominal pain Discharge Disposition: 01-Home or Self Care Attending Physician: Carlos Flores MD Admitting Physician: Jeromy Alvarenga MD Vital Signs Most recent to 1 oldest [Reference Range]: Temperature Oral 37.0 degC [35.8-37.3 degC] (04/25/15 4:43 PM) Peripheral Pulse 81 bpm Rate [60-100 bpm] (04/25/15 1:34 PM) Heart Rate Monitored 81 bpm [60-100 bpm] (04/25/15 4:43 PM) Respiratory Rate 18 br/min [14-20 br/min] (04/25/15 4:43 PM) Blood Pressure 106/70 mmHg [90-140/60-90 mmHg] (04/25/15 4:43 PM) Mean Arterial 83 mmHg Pressure, Cuff (04/25/15 3:28 PM) SpO2 97 % (04/25/15 4:43 PM) Problem List Condition Effective Dates Status [...] Infection in Nutrition Plan of Care 3Dr. Hostetter 4hospitalization 5Problem added automatically by system based [...] 0 Refill(s) Start Date: 11/06/14 Status: Ordered Cipro 500 mg oral tablet 500 mg 1 tabs, Oral, BID, X 10 days, # 20 tabs, 0 Refill(s) Start Date: 04/25/15 Stop Date: 05/05/15 Status: Ordered clonazePAM 0.5 mg oral tablet 0.5 mg, Oral, BID, Anxiety, 0 Refill(s) Start Date: 03/14/15 Status: Ordered cyanocobalamin 1000 mcg/mL injectable solution 1,000 mcg, IntraMuscular, qMonth, 0 Refill(s) Start Date: 03/11/15 Status: Ordered cyclobenzaprine 5 mg oral tablet 5 mg 1 tabs, Oral, TID, as needed for muscle spasm, # 30 tabs, 0 Refill(s) Start Date: 04/18/15 Stop Date: 05/02/15 Status: Ordered denosumab 60 mg/mL subcutaneous solution [...] 15 mg 1 tabs, Oral, q12hr, # 30 tabs, 0 Refill(s) Start Date: 04/18/15 Status: Ordered Sunflower 5 mg-325 mg oral tablet 1 tabs, Oral, q6hr, as needed for pain, # 75 tabs, 0 Refill(s) Start Date: 04/18/15 Stop Date: 05/01/15 Status: Ordered predniSONE 20 mg oral tablet [...] to 1 oldest [Reference Range]: WBC [4.8-10.8 7.3 10*3/uL 10*3/uL] (04/25/15 1:58 PM) RBC [4.00-5.20] 3.98 *LOW* (04/25/15 1:58 PM) Hgb [12.0-16.0 12.0 gm/dL gm/dL] (04/25/15 1:58 PM) Hct [37.0-47.0 %] 36.8 % *LOW* (04/25/15 1:58 PM) MCV [82.0-99.0 fL] 92.5 fL (04/25/15 1:58 PM) MCH [27.0-32.0 pg] 30.2 pg (04/25/15 1:58 PM) MCHC [32.0-36.0 32.6 gm/dL gm/dL] (04/25/15 1:58 PM) RDW [11.5-14.5 %] 12.7 % (04/25/15 1:58 PM) Platelet [150-400 237 10*3/uL 10*3/uL] (04/25/15 1:58 PM) MPV [9.4-12.4 fL] 9.5 fL (04/25/15 1:58 PM) Immature 0.4 % Granulocytes (04/25/15 1:58 PM) [0.0-1.0 %] Neutrophils [51-75 64 % %] (04/25/15 1:58 PM) Lymphocytes [20-46 16 % %] *LOW* (04/25/15 1:58 PM) Monocytes [4-11 %] 18 % *HI* (04/25/15 1:58 PM) Eosinophils [0-4 %] 2 % (04/25/15 1:58 PM) Basophils [0-2 %] 0 % (04/25/15 1:58 PM) Neutro Absolute 4.67 10*3 [1.90-7.00 10*3] (04/25/15 1:58 PM) Lymph Absolute 1.13 10*3 [0.80-3.30 10*3] (04/25/15 1:58 PM) [place] Absolute 1.27 10*3 [0.30-1.00 10*3] *HI* (04/25/15 1:58 PM) Eos Absolute 0.13 10*3 [0.00-0.50 10*3] (04/25/15 1:58 PM) Baso Absolute 0.03 10*3 [0.00-0.20 10*3] (04/25/15 1:58 PM) Nucleated RBC 0.0 /100 WBC Automated [0 /100 (04/25/15 1:58 PM) WBC] Chemistry Most recent to 1 oldest [Reference Range]: Sodium Lvl [136-144 135 mEq/L mEq/L] *LOW* (04/25/15 1:59 PM) Potassium Lvl 4.1 mEq/L [3.6-5.1 mEq/L] (04/25/15 1:59 PM) Chloride [99-109 106 mEq/L mEq/L] (04/25/15 1:59 PM) CO2 [22-32 mEq/L] 20 mEq/L *LOW* (04/25/15 1:59 PM) AGAP [3-20] 9 (04/25/15 1:59 PM) BUN [4-20 mg/dL] 19 mg/dL (04/25/15 1:59 PM) Glucose Lvl [70-100 101 mg/dL mg/dL] *HI* (04/25/15 1:59 PM) Creatinine Lvl 1.22 mg/dL [0.44-1.03 mg/dL] *HI* (04/25/15 1:59 PM) eGFR [>60] 44 1 *ABN* (04/25/15 1:59 PM) Calcium Lvl 9.1 mg/dL [8.6-10.0 mg/dL] (04/25/15 1:59 PM) Albumin Lvl [3.5-4.8 3.5 gm/dL gm/dL] (04/25/15 1:59 PM) Total Protein 6.7 gm/dL [6.1-7.9 gm/dL] (04/25/15 1:59 PM) Globulin [1.9-4.3 3.2 gm/dL gm/dL] (04/25/15 1:59 PM) ALT [14-54 U/L] 10 U/L *LOW* (04/25/15 1:59 PM) AST [15-41 U/L] 17 U/L (04/25/15 1:59 PM) Alk Phos [26-104 55 U/L U/L] (04/25/15 1:59 PM) Bili Total [0.2-1.2 0.5 mg/dL 2 mg/dL] (04/25/15 1:59 PM) Lipase Lvl [8-48 39 U/L U/L] (04/25/15 1:59 PM) 1Result Comment: Multiply eGFR results by 1.21 for race. 2Result Comment: Naproxen, specifically the metabolite O-desmethylnaproxen, may cause spurious elevation in Total Bilirubin levels. Urinalysis Most recent to 1 oldest [Reference Range]: UA Color Yellow (04/25/15 1:47 PM) UA Appear Sl Cloudy (04/25/15 1:47 PM) UA pH [5.0-8.0] 5.0 (04/25/15 1:47 PM) UA Leuk Est Negative [Negative] (04/25/15 1:47 PM) UA Nitrite Negative [Negative] (04/25/15 1:47 PM) UA Protein Pos 1+ [Negative] *ABN* (04/25/15 1:47 PM) UA Glucose Negative [Negative] (04/25/15 1:47 PM) UA Ketones Negative [Negative] (04/25/15 1:47 PM) UA Urobilinogen Negative [<1.0] (04/25/15 1:47 PM) UA Bili [Negative] Negative (04/25/15 1:47 PM) UA Blood [Negative] Negative (04/25/15 1:47 PM) UA Spec Grav 1.020 [1.003-1.030] (04/25/15 1:47 PM) Type Venous (04/25/15 2:00 PM) UA WBC [0-4] 2-5 (04/25/15 1:47 PM) UA RBC [0-2] 0-2 (04/25/15 1:47 PM) Epithelial Cells 2-5 (04/25/15 1:47 PM) UA Bacteria Rare (04/25/15 1:47 PM) UA Hyal Cast [0-3] 1-3 (04/25/15 1:47 PM) UA Mucous Present (04/25/15 1:47 PM) Immunizations No data available for this [...]
--- OUTSIDE RECORDS SUMMARY | 2016-06-12 15:36 | XMS REPORT | Referral Summary ---
Author Author [facility] Organization [facility] Address Unknown Phone Unavailable Care Team Providers Care Hydraulics Engineer Name Role Phone Earl Landa Primary Care Physician [phone] Encounter VC Date(s): 11/19/15 - 11/19/15 [facility] [address] [place] [id number] Discharge Diagnosis: Chronic neck pain Discharge Diagnosis: Depression Discharge Diagnosis: Chronic pain syndrome Discharge Diagnosis: Mid back pain on left side Discharge Disposition: 01-Home or Self Care Attending Physician: Syed Landa MD Admitting Physician: Syed Landa MD Vital Signs Most recent to 1 oldest [Reference Range]: Peripheral Pulse 81 bpm Rate [60-100 bpm] (11/19/15 11:24 AM) Blood Pressure 120/80 mmHg [90-140/60-90 mmHg] (11/19/15 11:24 AM) Problem List Condition Effective Dates Status [...] Active pelvis(Confirmed) Generalized Active abdominal pain (finding)(Confirmed) Ill-fitting Active dentures(Confirmed) Impaired skin Active integrity(Confirmed) 5 Kidney Resolved [...] mg oral tablet 0.5 mg, Oral, BID, as needed for anxiety, # 90 tabs, 0 Refill(s) Start Date: 09/30/15 Status: Ordered Coreg 12.5 mg oral tablet 12.5 mg 1 tabs, Oral, BID, Pt. takes 1/2 tablet, # 180 tabs, 1 Refill(s), Pharmacy: [facility], 1 tabs Oral BID Start Date: 09/30/15 Status: Ordered cyanocobalamin 1000 mcg/mL injectable solution 1,000 mcg 1 mL, IntraMuscular, qMonth, # 1 mL, 6 Refill(s), Pharmacy: [facility], 1 mL IntraMuscular qMonth Start Date: 09/30/15 Status: Ordered denosumab 60 mg/mL subcutaneous solution 60 mg 1 mL, SubCutaneous, q6mo, # 1 mL, 0 Refill(s), other reason (Rx) Start Date: 11/06/14 Status: Ordered Fetzima 80 mg, Oral, Daily, 0 Refill(s) Start Date: 03/11/15 Status: Ordered ibuprofen 600 mg oral tablet 600 mg 1 tabs, Oral, q8hr, as needed for pain, 0 Refill(s) Start Date: 07/19/15 Status: Ordered lidocaine 2% topical gel with applicator See Instructions, 1 anisa tid topically, 0 Refill(s) Start Date: 11/19/15 Status: Ordered mirtazapine 15 mg oral tablet 15 mg 1 tabs, Oral, Bedtime (once a day), # 90 tabs, 1 Refill(s), Pharmacy: [facility], 1 tabs Oral Bedtime (once a day),x90 days Start Date: 09/30/15 Stop Date: 03/28/16 Status: Ordered Robaxin-750 750 mg, Oral, TID, as needed for pain, 0 Refill(s) Start Date: 07/19/15 Status: Ordered temazepam 15 mg oral capsule 15 mg, Oral, Bedtime (once a day), Sleep, X 90 days, # 90 caps, 1 Refill(s) Start Date: 09/30/15 Stop Date: 03/28/16 Status: Ordered traZODone 50 mg oral tablet 75 mg 1.5 tabs, Oral, Bedtime (once a day), # 135 tabs, 1 Refill(s), Pharmacy: [facility], 1.5 tabs Oral Bedtime (once a day),x90 days Start Date: 09/30/15 Stop Date: 03/28/16 Status: Ordered triamcinolone 0.1% topical cream 1 anisa, Topical, TID, # 15 g, 0 Refill(s), Pharmacy: [facility] Start Date: 11/19/15 Stop Date: 12/20/15 Status: Ordered Vitamin C 500 mg oral [...] Tubal ligation, bilateral 1[facility]RAL [facility] 3BACK SURGERY 4in December 5left eye Social History Social History Type Response Smoking Status Former smoker; Type: Cigarettes; Tobacco use per day: Less than Pack Assessment and Plan Extracted from: Title: Acute OV-Back Pain Author: Syed Landa MD Date: 11/19/15 Impression and Plan Diagnosis Mid back pain on left side (BAQ00-PT M54.9, Discharge, Medical). Orders Orders (Selected) Prescriptions Prescribed lidocaine 0.5% topical gel: 1 anisa, Topical, TID, 120 g, 0 Refill(s) triamcinolone 0.1% topical cream: 1 anisa, Topical, TID, 15 g, 0 Refill(s).
--- OUTSIDE RECORDS SUMMARY | 2016-06-12 15:36 | XMS REPORT | Referral Summary ---
Author Author [facility] Organization [facility] Address Unknown Phone Unavailable Care Team Providers Care Bilingual Teacher Assistant Name Role Phone Earl Landa Primary Care Physician [phone] Encounter Date(s): 09/17/15 - 09/17/15 [facility] [address] [place], [place] [address] Discharge Diagnosis: Ill-fitting dentures Discharge Disposition: 01-Home or Self Care Attending Physician: Erica Cates DO Admitting Physician: Erica Cates DO Referring Physician: Syed Landa MD Vital Signs No data available for [...] for Infection in Nutrition Plan of Care [facility]erra 4hospitalization 5Problem added automatically by system [...] mg, Oral, BID, as needed for anxiety, 0 Refill(s) Start Date: 03/14/15 Status: Ordered Coreg 12.5 mg oral tablet 12.5 mg 1 tabs, Oral, BID, 0 Refill(s) Start Date: 07/19/15 Status: Ordered cyanocobalamin 1000 mcg/mL injectable solution 1,000 mcg 1 mL, IntraMuscular, qMonth, # 1 mL, 11 Refill(s), Pharmacy: [facility], 1 mL IntraMuscular qMonth Start Date: 06/03/15 [...] 0 Refill(s) Start Date: 07/19/15 Status: Ordered mirtazapine 15 mg oral tablet 15 mg 1 tabs, Oral, Bedtime (once a day), # 30 tabs, 6 Refill(s), Pharmacy: [facility], 1 tabs Oral Bedtime (once a day) Start Date: 08/05/15 Status: Ordered MS Contin 15 mg/12 hr oral tablet, extended release 15 mg 1 tabs, Oral, Bedtime (once a day), # 24 tabs, 0 Refill(s) Start Date: 09/11/15 Stop Date: 10/11/15 Status: Ordered Robaxin-750 750 mg, Oral, TID, as needed for pain, 0 Refill(s) Start Date: 07/19/15 Status: Ordered temazepam 15 mg oral capsule 15 mg, Oral, Bedtime (once a day), Sleep, # 30 caps, 0 Refill(s) Start Date: 09/06/15 Stop Date: 10/07/15 Status: Ordered traZODone 50 mg oral tablet 75 mg 1.5 tabs, Oral, Bedtime (once a day), # 45 tabs, 6 Refill(s), Pharmacy: [facility], 1.5 tabs Oral Bedtime (once a day) Start Date: 08/05/15 Status: Ordered Vitamin C 500 mg oral [...] ligation, bilateral 1MITRAL VALVE [facility]PA[facility] 2[facility] 4[facility] 5left [facility] Social History Social History Type Response Smoking Status Former smoker; Type: Cigarettes; Tobacco use per day: Less than Pack Assessment and Plan No data available for this section
--- OUTSIDE RECORDS SUMMARY | 2016-06-12 15:36 | XMS REPORT | Referral Summary ---
Author Author [facility] Organization [facility] Address Unknown Phone Unavailable Care Team Providers Care Representative Name Role Phone Earl Landa Primary Care Physician [phone] Encounter VC Date(s): 07/22/15 - 07/22/15 [facility] [address] [place] [address] Discharge Diagnosis: Chronic pain syndrome Discharge Diagnosis: Cervical spine fracture Discharge Disposition: 01-Home or Self Care Attending Physician: Syed Landa MD Admitting Physician: Syed Landa MD Vital Signs Most recent to 1 oldest [Reference Range]: Peripheral Pulse 96 bpm Rate [60-100 bpm] (07/22/15 3:49 PM) Blood Pressure 150/60 mmHg [90-140/60-90 mmHg] *HI* (07/22/15 3:49 PM) SpO2 98 % (07/22/15 3:49 PM) Problem List Condition Effective Dates Status [...] 15 mg 1 tabs, Oral, q12hr, # 60 tabs, 0 Refill(s) Start Date: 07/22/15 Stop Date: 08/21/15 Status: Ordered [place] 7.5 mg-325 mg oral tablet 1 tabs, Oral, q4hr, as needed for pain, Should last 30 days., # 30 tabs, 0 Refill(s) Start Date: 07/22/15 Stop Date: 08/20/15 Status: Ordered Robaxin-750 750 mg, Oral, TID, [...] Tubal ligation, bilateral [facility] 3[facility]GERY 4in December 13left eye Social History Social History Type Response Smoking Status Former smoker; Type: Cigarettes; Tobacco use per day: Less than Pack Assessment and Plan Extracted from: Title: PostOp/Pain Management Visit Author: Syed Landa MD Date: Impression and Plan Diagnosis Cervical spine fracture ([id number] S12.9XXA, Discharge, Medical). Chronic pain syndrome ([id number]-NF G89.4, Discharge, Medical). Plan: Will give prescription for Morphine 15mg and [place] 7.5mg 325mg both for a 30 day supply. Will need to schedule for home health reevaluation and arrange for ostomy care. Follow up 3 to 4 weeks, or as needed. We will send a copy of the note to via [facility], and another to Dr. Garcia.. Orders Orders (Selected) Prescriptions Prescribed MS Contin 15 mg/12 hr oral tablet, extended release: 15 mg=1 tabs, Oral, q12hr, for 30 days, 60 tabs, 0 Refill(s) [place] 7.5 mg-325 mg oral tablet: 1 tabs, Oral, q4hr, Should last 30 days., PRN: as needed for pain, 30 tabs, 0 Refill(s).
--- OUTSIDE RECORDS SUMMARY | 2016-06-12 15:37 | XMS REPORT | Referral Summary ---
Author Author [facility] Organization [facility] Address Unknown Phone Unavailable Care Team Providers Care Slp Teacher Name Role Phone Earl Landa Primary Care Physician [phone] Encounter VC Date(s): 04/18/15 - 04/18/15 [facility] [address] [place] [id number] Discharge Diagnosis: Neck muscle spasm Discharge Diagnosis: Parotid mass Discharge Diagnosis: Pain management Discharge Diagnosis: Cervical spine fracture Discharge Disposition: 01-Home or Self Care Attending Physician: Syed Landa MD Admitting Physician: Syed Landa MD Vital Signs Most recent to 1 oldest [Reference Range]: Temperature Tympanic 37.4 degC [36.6-38.1 degC] (04/18/15 2:51 PM) Peripheral Pulse 75 bpm Rate [60-100 bpm] (04/18/15 2:51 PM) Blood Pressure 80/53 mmHg [90-140/60-90 mmHg] *LOW* (04/18/15 2:51 PM) Problem List Condition Effective Dates Status [...] 0 Refill(s) Start Date: 04/18/15 Status: Ordered Kirk[place] 5 mg-325 mg oral tablet 1 tabs, Oral, q6hr, as needed for pain, # 75 tabs, 0 Refill(s) Start Date: 04/18/15 Stop Date: 05/01/15 Status: Ordered temazepam 15 mg oral capsule [...] Tubal ligation, bilateral 1MITRAL VALVE REPAIR 2[facility] 3BACK SURGERY 4in December 13left eye Social History Social History Type Response Smoking Status Former smoker; Type: Cigarettes; Tobacco use per day: Less than Pack Assessment and Plan Extracted from: Title: Office Visit Note Author: Syed Landa MD Date: 04/18/15 Assessment/Plan Cervical spine fracture Neck muscle spasm Pain management Parotid mass Orders: cyclobenzaprine, 5 mg 1 tabs, Oral, TID, as needed for muscle spasm, # 30 tabs, 0 Refill(s) HYDROcodone-acetaminophen, 1 tabs, Oral, q6hr, as needed for pain, # 75 tabs, 0 Refill(s) morphine, 15 mg 1 tabs, Oral, q12hr, # 30 tabs, 0 Refill(s) We discussed pain management. Ibuprofen has potential to cause GI upset. I advised that she continue on famotidine as protection while taking the ibuprofen. She needs to limit the ibuprofen 2400 mg, 3 tablets 4 times a day would be maximum use. We discussed narcotic management and we'll put her on long-acting MS Contin 15 mg twice a day and continue with [place] 5/325 one tablet every 4 hours as needed to maximum of 6 per day. She is to follow-up with me within 2 weeks for reassessment of pain control. She continues to follow with Dr. Garcia regarding the C-spine fracture and has an appointment with him next week. She has a right parotid mass which will eventually need additional follow-up after the brace is removed. We will send a copy of the dictation to Dr. Garcia.
--- OUTSIDE RECORDS SUMMARY | 2016-06-12 15:37 | XMS REPORT | Referral Summary ---
Author Author [facility] Organization [facility] Address Unknown Phone Unavailable Care Team Providers Care Shipfitters Supervisor Name Role Phone Earl Landa Primary Care Physician [phone] Encounter VC Date(s): 11/19/15 - 11/19/15 [facility] [address] [place] [id number] Discharge Disposition: 01-Home or Self Care Attending Physician: Syed Landa MD Admitting Physician: Syed Landa MD Vital Signs Most recent to 1 oldest [Reference Range]: Temperature Tympanic 37.3 degC [36.6-38.1 degC] (11/19/15 1:27 PM) Peripheral Pulse 76 bpm Rate [60-100 bpm] (11/19/15 1:27 PM) Blood Pressure 118/80 mmHg [90-140/60-90 mmHg] (11/19/15 1:27 PM) SpO2 96 % (11/19/15 1:27 PM) Problem List Condition Effective Dates Status [...] # 90 tabs, 1 Refill(s), Pharmacy: [facility], 1 tabs Oral Bedtime (once a day),x90 [...] TID, # 15 g, 0 Refill(s), Pharmacy: [facility] Start Date: 11/19/15 Stop Date: 12/20/15 [...]
--- OUTSIDE RECORDS SUMMARY | 2016-06-12 15:37 | XMS REPORT | Referral Summary ---
Author Author [facility] Organization [facility] Address Unknown Phone Unavailable Care Team Providers Care Upkeep Worker Name Role Phone Earl Landa Primary Care Physician [phone] Encounter VC Date(s): 11/06/14 - 11/06/14 [facility] [address] [place] [address] [place] [id number] Discharge Disposition: 01-Home or Self [...] 0 Refill(s) Start Date: 04/29/15 Status: Ordered Vantage 5 mg-325 mg oral tablet 1 tabs, [...] Tubal ligation, bilateral 1MITRAL VALVE REPAIR 2Dr. [facility] 3BACK SURGERY 4in December 5left eye [...]
--- OUTSIDE RECORDS SUMMARY | 2016-06-12 15:37 | XMS REPORT | Referral Summary ---
Author Author [facility] Organization [facility] Address Unknown Phone Unavailable Care Team Providers Care Director Of Occupational Health Name Role Phone Earl Landa Primary Care Physician [phone] Encounter VC Date(s): 03/16/16 - 03/16/16 [facility] [address] [place] [id number] Discharge Disposition: 01-Home or Self Care Attending Physician: Lex Johnson APRN Admitting Physician: Lex Johnson APRN Vital Signs Most recent to 1 oldest [Reference Range]: Temperature Tympanic 36.9 degC [36.6-38.1 degC] (03/16/16 10:44 AM) Peripheral Pulse 78 bpm Rate [60-100 bpm] (03/16/16 10:44 AM) Respiratory Rate 18 br/min [14-20 br/min] (03/16/16 10:44 AM) Blood Pressure 100/70 mmHg [90-140/60-90 mmHg] (03/16/16 10:44 AM) SpO2 97 % (03/16/16 10:44 AM) Problem List Condition Effective Dates Status [...] Infection in Nutrition Plan of Care [facility] [place] 4hospitalization 5Problem added automatically by system based [...] Status amoxicillin NAUSEA/VOMITING Active amoxicillin-clavulanate NAUSEA/VOMITING Active Ativan Active Augmentin Active Flagyl Active haloperidol Active lithium Itching Active Adverse [...] IntraMuscular qMonth Start Date: 09/30/15 Status: Ordered cyclobenzaprine 5 mg oral tablet See Instructions, TAKE 1 TABLET BY MOUTH THREE TIMES A DAY NEEDED FOR MUSCLE SPASM, # 30 tabs, eRx: [facility], TAKE 1 TABLET BY MOUTH THREE TIMES A DAY NEEDED FOR MUSCLE SPASM Start Date: 12/06/15 Status: Ordered denosumab 60 mg/mL subcutaneous solution [...] day), # 135 tabs, 1 Refill(s), Pharmacy: [facility], 1.5 tabs Oral Bedtime (once a day),x90 days Start Date: 09/30/15 Stop Date: 03/28/16 Status: Ordered Vitamin C 500 mg oral tablet 500 mg 1 tabs, Oral, Daily, # 30 tabs, 0 Refill(s) Start Date: 11/06/14 Status: Ordered Results Hematology Most recent to 1 oldest [Reference Range]: WBC [4.8-10.8 7.2 10*3/uL 10*3/uL] (03/16/16 12:27 PM) RBC [4.00-5.20] 4.39 (03/16/16 12:27 PM) Hgb [12.0-16.0 12.7 gm/dL gm/dL] (03/16/16 12:27 PM) Hct [37.0-47.0 %] 41.5 % (03/16/16 12:27 PM) MCV [82.0-99.0 fL] 94.5 fL (03/16/16 12:27 PM) MCH [27.0-32.0 pg] 28.9 pg (03/16/16 12:27 PM) MCHC [32.0-36.0 30.6 gm/dL gm/dL] *LOW* (03/16/16 12:27 PM) RDW [11.5-14.5 %] 13.1 % (03/16/16 12:27 PM) Platelet [150-400 217 10*3/uL 10*3/uL] (03/16/16 12:27 PM) MPV [8.8-14.8 fL] 10.5 fL (03/16/16 12:27 PM) Immature 0.3 % Granulocytes (03/16/16 12:27 PM) [0.0-1.0 %] Neutrophils [51-75 71 % %] (03/16/16 PM) Lymphocytes [20-46 16 % %] *LOW* (03/16/16) Monocytes [4-11 %] 11 % (03/16/16 PM) Eosinophils [0-4 %] 2 % (03/16/16 PM) Basophils [0-2 %] 0 % (03/16/16 PM) Neutro Absolute 5.07 [1.90-7.00] (03/16/16 PM) Lymph Absolute 1.13 [0.80-3.30] (03/16/16: PM) Loving Absolute 0.76 [0.30-1.00] (03/16/16 PM) Eos Absolute 0.16 [0.00-0.50] (03/16/16 PM) Baso Absolute 0.02 [0.00-0.20] (03/16/16 PM) Chemistry Most recent to 1 oldest [Reference Range]: Sodium Lvl [135-144 142 mEq/L mEq/L] (03/16/16 PM) Potassium Lvl 4.5 mEq/L [3.5-5.2 mEq/L] (03/16/16 PM) Chloride [99-111 111 mEq/L mEq/L] (03/16/16 PM) CO2 [22-31 mEq/L] 23 mEq/L (03/16/16 PM) AGAP [3-20] 8 (03/16/16 PM) BUN [10-20 mg/dL] 18 mg/dL (03/16/16 PM) Glucose Lvl [70-99 75 mg/dL mg/dL] (03/16/16 PM) Creatinine Lvl 1.12 mg/dL [0.57-1.11 mg/dL] *HI* (03/16/16 PM) eGFR [>60 mL/min] 49 mL/min 1 *ABN* (03/16/16 PM) Calcium Lvl 9.0 mg/dL 2 [8.4-10.2 mg/dL] (2/6/17 12:27 PM) 1Result Comment: Multiply eGFR results by 1.21 for race. 2Result Comment: Please note reference range change effective 03/13/2016. Urinalysis Most recent to 1 oldest [Reference Range]: UA Color Yellow (03/16/16 1:11 PM) UA Appear Cloudy *ABN* (03/16/16 1:11 PM) UA pH [5.0-8.0] 6.0 (03/16/16 1:11 PM) UA Leuk Est Negative [Negative] (03/16/16 1:11 PM) UA Nitrite Negative [Negative] (03/16/16 1:11 PM) UA Protein Trace [Negative] *ABN* (03/16/16 1:11 PM) UA Glucose Negative [Negative] (03/16/16 1:11 PM) UA Ketones Negative [Negative] (03/16/16 1:11 PM) UA Urobilinogen 0.2 mg/dL [<1.0 mg/dL] (03/16/16 1:11 PM) UA Bili [Negative] Negative (03/16/16 1:11 PM) UA Blood [Negative] Negative (03/16/16 1:11 PM) UA Spec Grav 1.021 [1.003-1.030] (03/16/16 1:11 PM) Type Clean Catch (03/16/16 1:11 PM) Immunizations No data available for this [...] Tubal ligation, bilateral 1MITRAL VALVE REPAIR 2[facility]. [facility] 3BACK SURGERY 4in December 5left eye Social History Social History Type Response Smoking Status Former smoker; Type: Cigarettes; Tobacco use per day: Less than Pack Assessment and Plan No data available for this section
--- OUTSIDE RECORDS SUMMARY | 2016-06-12 15:37 | XMS REPORT ---
Author Author [facility], [facility] - Organization Unknown Address Unknown Phone Unavailable Allergies, Adverse Reactions, Alerts * Darvocet-N 100 causes Adverse Reaction and Unknown Adverse Reaction. * [place]view causes Moderate Adverse Reaction. * Haldol causes Moderate Adverse Reaction. * Ativan causes Moderate Adverse Reaction. * Flagyl causes Adverse Reaction. * Augmentin causes Adverse Reaction and Adverse Reaction. * Sulfa (Sulfonamide Antibiotics) causes Adverse Reaction. * Darvon causes Adverse Reaction. * No Latex Allergy. * No IV Contrast Allergy. Problems * Atrial Fibrillation* Status:Active. * Knowledge of Disease Low Level* Status:Active. * Pain* Status:Active. * Replacement of Mitral Valve* Status:Active. * Skin Integrity Impairment* Status:Active. Procedures No relevant procedures performed. Medication It is the responsibility of the patient or patient provider service representative to confirm the list of medications with either the patient's personal care provider or the patient's follow-up care provider to ensure the patient has an appropriate list of medications to take at home. Discharge medications* ALPRAZolam 2 mg Tablet, Ordered By: Luiz Dumont Directions: 1 tablet oral three times a day PRN anxiety * traZODone 50 mg Tablet, Ordered By: Luiz Dumont Directions: 1.5 tablet oral daily at bedtime * temazepam 45 mg Capsule, Ordered By: Luiz Dumont Directions: 1 capsule oral daily at bedtime * amiodarone (Pacerone) 200 mg Tablet, Ordered By: Luiz Dumont Directions: 1 tablet oral twice a day * ferrous sulfate 325 mg (65 mg iron) tablet,delayed release (DR/EC), Ordered By : Luiz Dumont Directions: 1 tablet oral twice a day during meal Additional Instructions: 325MG FERR SULF=65MG EGEGIK IRON * furosemide 40 mg Tablet, Ordered By: Luiz Dumont Directions: 1 tablet oral daily * HYDROCODONE 10 MG-ACET 325 MG (NORCO 10 (EQUIV)) 1-2 TABS Oral TAB Q4H PRN PAIN Directions: 1-2 TABS oral every four hours PRN PAIN * metoprolol tartrate 25 mg Tablet, Ordered By: Luiz Dumont Directions: 0.5 tablet oral twice a day HOLD FOR SBP<90 OR HR<60. * omeprazole 20 mg capsule,delayed release(/EC), Ordered By: Luiz Dumont Directions: 1 capsule oral twice a day before meals GERD * potassium chloride (Klor-Con M20) 20 mEq tablet,ER particles/crystals, Ordered By: Luiz Dumont Directions: 1 tablet oral Daily at 8 AM _ Additional Instructions: GIVE WITH MEALS OR FOOD Stopped medications* escitalopram 20 mg Tablet Directions: 1 tablet oral daily * atenolol 25 mg Tablet Directions: 0.5 tablet oral daily Results LAB--BEDSIDE TESTING from 12/07/2012 7:25 AMActivated Clotting Time NPT 129 secs (100-146 secs) LAB--BEDSIDE TESTING from 12/07/2012 7:26 AMBase Excess Arterial NPT -2 L (0-2 ) Calcium Ionized Arterial NPT 1.12 mmol/L L (1.19-1.41 mmol/L) Glucose Arterial NPT 122 mg/dL H (70-100 mg/dL) Bicarbonate Arterial NPT 23 mEq/L (22-26 mEq/L) HCT Arterial NPT 24.0 % HGB Arterial NPT 8.2 g/dL Potassium Arterial NPT 3.0 mEq/L L (3.6-5.1 mEq/L) Sodium Arterial NPT 141 mEq/L (136-144 mEq/L) O2 Saturation Arterial NPT 100.0 % H (90.0-97.0 %) PCO2 Arterial NPT 37 mmHg (35-45 mmHg) pH Arterial NPT 7.41 (7.35-7.45 ) PO2 Arterial NPT 460 mmHg H (80-100 mmHg) Total CO2 Arterial NPT 24 mEq/L (23-27 mEq/L) LAB--BEDSIDE TESTING from 12/07/2012 8:02 AMActivated Clotting Time NPT 549 secs H (100-146 secs) LAB--BEDSIDE TESTING from 12/07/2012 8:03 AMBase Excess Arterial NPT -3 L (0-2 ) Calcium Ionized Arterial NPT 1.14 mmol/L L (1.19-1.41 mmol/L) Glucose Arterial NPT 154 mg/dL H (70-100 mg/dL) Bicarbonate Arterial NPT 22 mEq/L (22-26 mEq/L) HCT Arterial NPT 24.0 % HGB Arterial NPT 8.2 g/dL Potassium Arterial NPT 2.9 mEq/L L (3.6-5.1 mEq/L) Sodium Arterial NPT 141 mEq/L (136-144 mEq/L) O2 Saturation Arterial NPT 100.0 % H (90.0-97.0 %) PCO2 Arterial NPT 40 mmHg (35-45 mmHg) pH Arterial NPT 7.36 (7.35-7.45 ) PO2 Arterial NPT 440 mmHg H (80-100 mmHg) Total CO2 Arterial NPT 24 mEq/L (23-27 mEq/L) LAB--BEDSIDE TESTING from 12/07/2012 8:31 AMActivated Clotting Time NPT 674 secs H (100-146 secs) LAB--BEDSIDE TESTING from 12/07/2012 8:32 AMBase Excess Arterial NPT -5 L (0-2 ) Calcium Ionized Arterial NPT 0.96 mmol/L L (1.19-1.41 mmol/L) Glucose Arterial NPT 210 mg/dL H (70-100 mg/dL) Bicarbonate Arterial NPT 21 mEq/L L (22-26 mEq/L) HCT Arterial NPT 22.0 % HGB Arterial NPT 7.5 g/dL Potassium Arterial NPT 3.1 mEq/L L (3.6-5.1 mEq/L) Sodium Arterial NPT 143 mEq/L (136-144 mEq/L) O2 Saturation Arterial NPT 100.0 % H (90.0-97.0 %) PCO2 Arterial NPT 41 mmHg (35-45 mmHg) pH Arterial NPT 7.32 L (7.35-7.45 ) PO2 Arterial NPT 289 mmHg H (80-100 mmHg) Total CO2 Arterial NPT 22 mEq/L L (23-27 mEq/L) LAB--BEDSIDE TESTING from 12/07/2012 9:13 AMBase Excess Arterial NPT -4 L (0-2 ) Calcium Ionized Arterial NPT 1.04 mmol/L L (1.19-1.41 mmol/L) Glucose Arterial NPT 207 mg/dL H (70-100 mg/dL) Bicarbonate Arterial NPT 22 mEq/L (22-26 mEq/L) HCT Arterial NPT 20.0 % HGB Arterial NPT 6.8 g/dL Potassium Arterial NPT 3.2 mEq/L L (3.6-5.1 mEq/L) Sodium Arterial NPT 143 mEq/L (136-144 mEq/L) O2 Saturation Arterial NPT 100.0 % H (90.0-97.0 %) PCO2 Arterial NPT 43 mmHg (35-45 mmHg) pH Arterial NPT 7.31 L (7.35-7.45 ) PO2 Arterial NPT 285 mmHg H (80-100 mmHg) Total CO2 Arterial NPT 23 mEq/L (23-27 mEq/L) Activated Clotting Time NPT 394 secs H (100-146 secs) LAB--BEDSIDE TESTING from 12/07/2012 9:55 AMBase Excess Arterial NPT -4 L (0-2 ) Calcium Ionized Arterial NPT 1.45 mmol/L H (1.19-1.41 mmol/L) Glucose Arterial NPT 189 mg/dL H (70-100 mg/dL) Bicarbonate Arterial NPT 22 mEq/L (22-26 mEq/L) HCT Arterial NPT 13.0 % HGB Arterial NPT 4.4 g/dL Potassium Arterial NPT 3.0 mEq/L L (3.6-5.1 mEq/L) Sodium Arterial NPT 142 mEq/L (136-144 mEq/L) O2 Saturation Arterial NPT 100.0 % H (90.0-97.0 %) PCO2 Arterial NPT 41 mmHg (35-45 mmHg) pH Arterial NPT 7.34 L (7.35-7.45 ) PO2 Arterial NPT 473 mmHg H (80-100 mmHg) Total CO2 Arterial NPT 23 mEq/L (23-27 mEq/L) LAB--BEDSIDE TESTING from 12/07/2012 10:12 AMActivated Clotting Time NPT 119 secs (100-146 secs) LAB--BEDSIDE TESTING from 12/07/2012 10:13 AMBase Excess Arterial NPT -5 L (0- 2 ) Calcium Ionized Arterial NPT 1.38 mmol/L (1.19-1.41 mmol/L) Glucose Arterial NPT 182 mg/dL H (70-100 mg/dL) Bicarbonate Arterial NPT 23 mEq/L (22-26 mEq/L) HCT Arterial NPT 15.0 % HGB Arterial NPT 5.1 g/dL Potassium Arterial NPT 3.2 mEq/L L (3.6-5.1 mEq/L) Sodium Arterial NPT 142 mEq/L (136-144 mEq/L) O2 Saturation Arterial NPT 100.0 % H (90.0-97.0 %) PCO2 Arterial NPT 51 mmHg H (35-45 mmHg) pH Arterial NPT 7.25 L (7.35-7.45 ) PO2 Arterial NPT 459 mmHg H (80-100 mmHg) Total CO2 Arterial NPT 24 mEq/L (23-27 mEq/L) LAB--BEDSIDE TESTING from 12/07/2012 10:52 AMBase Excess Arterial NPT -7 L (0- 2 ) Calcium Ionized Arterial NPT 1.25 mmol/L (1.19-1.41 mmol/L) Glucose Arterial NPT 112 mg/dL H (70-100 mg/dL) Bicarbonate Arterial NPT 20 mEq/L L (22-26 mEq/L) HCT Arterial NPT 24.0 % HGB Arterial NPT 8.2 g/dL Potassium Arterial NPT 2.9 mEq/L L (3.6-5.1 mEq/L) Sodium Arterial NPT 145 mEq/L H (136-144 mEq/L) O2 Saturation Arterial NPT 100.0 % H (90.0-97.0 %) PCO2 Arterial NPT 43 mmHg (35-45 mmHg) pH Arterial NPT 7.28 L (7.35-7.45 ) PO2 Arterial NPT 503 mmHg H (80-100 mmHg) Total CO2 Arterial NPT 21 mEq/L L (23-27 mEq/L) LAB--BEDSIDE TESTING from 12/07/2012 11:31 AMGlucose NPT 92 mg/dL (70-100 mg/dL ) LAB--BEDSIDE TESTING from 12/07/2012 4:08 PMGlucose NPT 190 mg/dL H (70-100 mg/ dL) LAB--BEDSIDE TESTING from 12/07/2012 5:14 PMGlucose NPT 176 mg/dL H (70-100 mg/ dL) LAB--BEDSIDE TESTING from 12/07/2012 6:09 PMGlucose NPT 137 mg/dL H (70-100 mg/ dL) LAB--BEDSIDE TESTING from 12/07/2012 6:59 PMGlucose NPT 126 mg/dL H (70-100 mg/ dL) LAB--BEDSIDE TESTING from 12/07/2012 7:54 PMGlucose NPT 121 mg/dL H (70-100 mg/ dL) LAB--BEDSIDE TESTING from 12/07/2012 8:49 PMGlucose NPT 124 mg/dL H (70-100 mg/ dL) LAB--BEDSIDE TESTING from 12/07/2012 9:55 PMGlucose NPT 114 mg/dL H (70-100 mg/ dL) LAB--BEDSIDE TESTING from 12/07/2012 11:52 PMGlucose NPT 108 mg/dL H (70-100 mg /dL) LAB--BEDSIDE TESTING from 12/08/2012 1:17 AMGlucose NPT 101 mg/dL H (70-100 mg/ dL) LAB--BEDSIDE TESTING from 12/08/2012 2:00 AMGlucose NPT 100 mg/dL (70-100 mg/dL ) LAB--BEDSIDE TESTING from 12/08/2012 3:06 AMGlucose NPT 114 mg/dL H (70-100 mg/ dL) LAB--BEDSIDE TESTING from 12/08/2012 4:05 AMGlucose NPT 116 mg/dL H (70-100 mg/ dL) LAB--BEDSIDE TESTING from 12/08/2012 4:45 AMGlucose NPT 110 mg/dL H (70-100 mg/ dL) LAB--BEDSIDE TESTING from 12/08/2012 5:58 AMGlucose NPT 128 mg/dL H (70-100 mg/ dL) LAB--BEDSIDE TESTING from 12/08/2012 8:16 AMGlucose NPT 157 mg/dL H (70-100 mg/ dL) LAB--BEDSIDE TESTING from 12/08/2012 9:58 AMGlucose NPT 156 mg/dL H (70-100 mg/ dL) LAB--BEDSIDE TESTING from 12/08/2012 3:45 PMGlucose NPT 131 mg/dL H (70-100 mg/ dL) LAB--BEDSIDE TESTING from 12/08/2012 8:14 PMGlucose NPT 108 mg/dL H (70-100 mg/ dL) LAB--BEDSIDE TESTING from 12/09/2012 12:18 AMGlucose NPT 101 mg/dL H (70-100 mg/ dL) LAB--BEDSIDE TESTING from 12/09/2012 4:04 AMGlucose NPT 83 mg/dL (70-100 mg/dL) LAB--BEDSIDE TESTING from 12/09/2012 5:29 AMGlucose NPT 85 mg/dL (70-100 mg/dL) LAB--BEDSIDE TESTING from 12/11/2012 1:30 AMGlucose NPT 106 mg/dL H (70-100 mg/ dL) LAB--BLOOD BANK from 12/06/2012 6:43 PMABO and Rh A POS Antibody Screen (Indirect Silvia) NEG LAB--BLOOD BANK from 12/06/2012 7:31 PMRed Blood Cells Leukoreduced [id number] selected (Preliminary Result) LAB--BLOOD BANK from 12/07/2012 6:42 AMRed Blood Cells Leukoreduced [id number] p.Transfused LAB--BLOOD BANK from 12/07/2012 6:49 AMRed Blood Cells Leukoreduced ( Preliminary Result)[id number] selected [id number] selected LAB--BLOOD BANK from 12/07/2012 10:34 AMPlatelet Pheresis Leukoreduced [id number] p.Transfused LAB--BLOOD BANK from 12/08/2012 8:40 AMRed Blood Cells Leukoreduced [id number] selected (Preliminary Result) LAB--BLOOD BANK from 12/08/2012 8:42 AMRed Blood Cells Leukoreduced [id number] p.Transfused LAB--BLOOD BANK from 12/08/2012 6:51 PMRed Blood Cells Leukoreduced [id number] selected (Preliminary Result) LAB--BLOOD BANK from 12/08/2012 6:55 PMRed Blood Cells Leukoreduced [id number] p.Transfused LAB--BLOOD BANK from 12/10/2012 1:10 AMRed Blood Cells Leukoreduced N/A LAB--BLOOD BANK from 12/11/2012 12:30 AMABO and Rh A POS Antibody Screen (Indirect Silvia) NEG LAB--CHEMISTRY from 12/06/2012 6:43 PMAnion Gap 5 (3-20 ) BUN 9 mg/dL (4-20 mg/dL) Calcium 8.7 mg/dL (8.6-10.0 mg/dL) Chloride 105 mEq/L (99-109 mEq/L) CO2 28 mEq/L (22-32 mEq/L) Creatinine 1.01 mg/dL (0.44-1.03 mg/dL) eGFR 55 A (>60- ) Glucose 129 mg/dL H (70-100 mg/dL) Potassium 3.8 mEq/L (3.6-5.1 mEq/L) Sodium 138 mEq/L (136-144 mEq/L) Cholesterol 133 mg/dL (0-200 mg/dL) Cardiac Risk 3.0 (0.0-5.0 ) HDL Cholesterol 44 mg/dL (>40- mg/dL) LDL Cholesterol 76 mg/dL (0-100 mg/dL) Triglycerides 65 mg/dL (0-150 mg/dL) VLDL Cholesterol 13 mg/dL (0-30 mg/dL) Prealbumin 18 mg/dL (18-38 mg/dL) LAB--CHEMISTRY from 12/06/2012 6:44 PMEstimated Average Glucose 91.1 mg/dL Hemoglobin A1C 4.8 % (4.1-5.6 %) LAB--CHEMISTRY from 12/07/2012 4:21 AMAnion Gap 6 (3-20 ) Albumin 3.4 g/dL L (3.5-4.8 g/dL) Alkaline Phosphatase 33 U/L (26-104 U/L) ALT (SGPT) 8 U/L L (14-54 U/L) AST (SGOT) 12 U/L L (15-41 U/L) Bilirubin Total 0.6 mg/dL (0.2-1.2 mg/dL) BUN 9 mg/dL (4-20 mg/dL) Calcium 8.8 mg/dL (8.6-10.0 mg/dL) Chloride 107 mEq/L (99-109 mEq/L) CO2 26 mEq/L (22-32 mEq/L) Creatinine 1.02 mg/dL (0.44-1.03 mg/dL) eGFR 55 A (>60- ) Globulin 2.2 g/dL (1.9-4.3 g/dL) Glucose 90 mg/dL (70-100 mg/dL) Potassium 3.9 mEq/L (3.6-5.1 mEq/L) Magnesium 1.8 mg/dL (1.8-2.5 mg/dL) Sodium 139 mEq/L (136-144 mEq/L) Protein 5.6 g/dL L (6.1-7.9 g/dL) TSH (with reflex Free T4) 1.29 uIU/mL (0.35-5.50 uIU/mL) Ammonia 17 umol/L (9-35 umol/L) LAB--CHEMISTRY from 12/07/2012 11:30 AMAnion Gap 4 (3-20 ) BUN 8 mg/dL (4-20 mg/dL) Calcium 8.4 mg/dL L (8.6-10.0 mg/dL) Calcium Ionized 1.31 mmol/L (1.19-1.41 mmol/L) Chloride 115 mEq/L H (99-109 mEq/L) CO2 20 mEq/L L (22-32 mEq/L) Creatinine 1.03 mg/dL (0.44-1.03 mg/dL) eGFR 54 A (>60- ) Glucose 87 mg/dL (70-100 mg/dL) Potassium 3.2 mEq/L L (3.6-5.1 mEq/L) Magnesium 2.3 mg/dL (1.8-2.5 mg/dL) Sodium 139 mEq/L (136-144 mEq/L) LAB--CHEMISTRY from 12/08/2012 4:13 AMAnion Gap 5 (3-20 ) BUN 13 mg/dL (4-20 mg/dL) Calcium 7.4 mg/dL L (8.6-10.0 mg/dL) Calcium Ionized 1.15 mmol/L L (1.19-1.41 mmol/L) Chloride 112 mEq/L H (99-109 mEq/L) CO2 22 mEq/L (22-32 mEq/L) Creatinine 1.05 mg/dL H (0.44-1.03 mg/dL) eGFR 53 A (>60- ) Glucose 114 mg/dL H (70-100 mg/dL) Potassium 4.3 mEq/L (3.6-5.1 mEq/L) Magnesium 1.7 mg/dL L (1.8-2.5 mg/dL) Sodium 139 mEq/L (136-144 mEq/L) LAB--CHEMISTRY from 12/08/2012 1:39 PMPotassium 3.8 mEq/L (3.6-5.1 mEq/L) LAB--CHEMISTRY from 12/09/2012 3:54 AMAnion Gap 2 L (3-20 ) BUN 15 mg/dL (4-20 mg/dL) Calcium 7.8 mg/dL L (8.6-10.0 mg/dL) Calcium Ionized 1.20 mmol/L (1.19-1.41 mmol/L) Chloride 106 mEq/L (99-109 mEq/L) CO2 26 mEq/L (22-32 mEq/L) Creatinine 1.12 mg/dL H (0.44-1.03 mg/dL) eGFR 49 A (>60- ) Glucose 84 mg/dL (70-100 mg/dL) Potassium 3.8 mEq/L (3.6-5.1 mEq/L) Magnesium 2.2 mg/dL (1.8-2.5 mg/dL) Sodium 134 mEq/L L (136-144 mEq/L) LAB--CHEMISTRY from 12/10/2012 6:37 AMAnion Gap 7 (3-20 ) BUN 18 mg/dL (4-20 mg/dL) Calcium 8.4 mg/dL L (8.6-10.0 mg/dL) Chloride 102 mEq/L (99-109 mEq/L) CO2 26 mEq/L (22-32 mEq/L) Creatinine 1.27 mg/dL H (0.44-1.03 mg/dL) eGFR 42 A (>60- ) Glucose 113 mg/dL H (70-100 mg/dL) Potassium 3.6 mEq/L (3.6-5.1 mEq/L) Sodium 135 mEq/L L (136-144 mEq/L) LAB--CHEMISTRY from 12/11/2012 3:25 AMAnion Gap 5 (3-20 ) Albumin 2.5 g/dL L (3.5-4.8 g/dL) BUN 13 mg/dL (4-20 mg/dL) Calcium 8.2 mg/dL L (8.6-10.0 mg/dL) Chloride 104 mEq/L (99-109 mEq/L) CO2 27 mEq/L (22-32 mEq/L) Creatinine 1.16 mg/dL H (0.44-1.03 mg/dL) eGFR 47 A (>60- ) Glucose 120 mg/dL H (70-100 mg/dL) Potassium 3.7 mEq/L (3.6-5.1 mEq/L) Sodium 136 mEq/L (136-144 mEq/L) Phosphorus 3.8 mg/dL (2.4-4.7 mg/dL) LAB--CHEMISTRY from 12/12/2012 4:29 AMAnion Gap 7 (3-20 ) Albumin 2.3 g/dL L (3.5-4.8 g/dL) BUN 10 mg/dL (4-20 mg/dL) Calcium 8.2 mg/dL L (8.6-10.0 mg/dL) Chloride 98 mEq/L L (99-109 mEq/L) CO2 29 mEq/L (22-32 mEq/L) Creatinine 1.09 mg/dL H (0.44-1.03 mg/dL) eGFR 51 A (>60- ) Glucose 97 mg/dL (70-100 mg/dL) Potassium 3.2 mEq/L L (3.6-5.1 mEq/L) Magnesium 1.3 mg/dL L (1.8-2.5 mg/dL) Sodium 134 mEq/L L (136-144 mEq/L) Phosphorus 3.5 mg/dL (2.4-4.7 mg/dL) LAB--CHEMISTRY from 12/13/2012 5:41 AMAnion Gap 5 (3-20 ) Albumin 2.5 g/dL L (3.5-4.8 g/dL) BUN 5 mg/dL (4-20 mg/dL) Calcium 8.5 mg/dL L (8.6-10.0 mg/dL) Chloride 102 mEq/L (99-109 mEq/L) CO2 28 mEq/L (22-32 mEq/L) Creatinine 1.04 mg/dL H (0.44-1.03 mg/dL) eGFR 53 A (>60- ) Glucose 107 mg/dL H (70-100 mg/dL) Potassium 3.2 mEq/L L (3.6-5.1 mEq/L) Magnesium 1.8 mg/dL (1.8-2.5 mg/dL) Sodium 135 mEq/L L (136-144 mEq/L) Phosphorus 2.7 mg/dL (2.4-4.7 mg/dL) LAB--CHEMISTRY from 12/14/2012 5:32 AMAnion Gap 4 (3-20 ) Albumin 2.4 g/dL L (3.5-4.8 g/dL) BUN 5 mg/dL (4-20 mg/dL) Calcium 8.3 mg/dL L (8.6-10.0 mg/dL) Chloride 104 mEq/L (99-109 mEq/L) CO2 28 mEq/L (22-32 mEq/L) Creatinine 0.98 mg/dL (0.44-1.03 mg/dL) eGFR 57 A (>60- ) Glucose 96 mg/dL (70-100 mg/dL) Potassium 3.7 mEq/L (3.6-5.1 mEq/L) Magnesium 1.6 mg/dL L (1.8-2.5 mg/dL) Sodium 136 mEq/L (136-144 mEq/L) Phosphorus 2.4 mg/dL (2.4-4.7 mg/dL) LAB--CHEMISTRY from 12/15/2012 7:27 AMAnion Gap 13 (3-20 ) B-Type Natriuretic Pep. 658 pg/mL H (0-99 pg/mL) BUN 6 mg/dL (4-20 mg/dL) Calcium 8.1 mg/dL L (8.6-10.0 mg/dL) Chloride 100 mEq/L (99-109 mEq/L) CO2 24 mEq/L (22-32 mEq/L) Creatinine 1.20 mg/dL H (0.44-1.03 mg/dL) eGFR 45 A (>60- ) Glucose 84 mg/dL (70-100 mg/dL) Potassium 3.9 mEq/L (3.6-5.1 mEq/L) Magnesium 1.8 mg/dL (1.8-2.5 mg/dL) Sodium 137 mEq/L (136-144 mEq/L) LAB--CHEMISTRY from 12/16/2012 7:22 AMAnion Gap 12 (3-20 ) BUN 7 mg/dL (4-20 mg/dL) Calcium 8.2 mg/dL L (8.6-10.0 mg/dL) Chloride 96 mEq/L L (99-109 mEq/L) CO2 27 mEq/L (22-32 mEq/L) Creatinine 1.28 mg/dL H (0.44-1.03 mg/dL) eGFR 42 A (>60- ) Glucose 78 mg/dL (70-100 mg/dL) Potassium 3.3 mEq/L L (3.6-5.1 mEq/L) Sodium 135 mEq/L L (136-144 mEq/L) LAB--CHEMISTRY from 12/16/2012 8:11 AMAnion Gap 13 (3-20 ) BUN 6 mg/dL (4-20 mg/dL) Calcium 8.0 mg/dL L (8.6-10.0 mg/dL) Chloride 98 mEq/L L (99-109 mEq/L) CO2 25 mEq/L (22-32 mEq/L) Creatinine 1.28 mg/dL H (0.44-1.03 mg/dL) eGFR 42 A (>60- ) Glucose 77 mg/dL (70-100 mg/dL) Potassium 3.6 mEq/L (3.6-5.1 mEq/L) Sodium 136 mEq/L (136-144 mEq/L) LAB--COAG STUDIES from 12/06/2012 6:44 PMFibrinogen 275 mg/dL (187-520 mg/dL) INR 1.0 (0.9-1.2 ) PTT 27.8 sec (25.0-35.0 sec) LAB--COAG STUDIES from 12/07/2012 12:00 AMFibrinogen 153 mg/dL L (187-520 mg/dL) INR 1.7 H (0.9-1.2 ) PTT 32.6 sec (25.0-35.0 sec) LAB--COAG STUDIES from 12/08/2012 7:17 PMINR 1.2 (0.9-1.2 ) Heparin Induced Antibody Negative (Negative ) Heparin Induced Ab OD 0.071 LAB--COAG STUDIES from 12/16/2012 8:11 AMINR 1.4 H (0.9-1.2 ) LAB--FLUID TESTING from 12/10/2012 7:06 AMOccult Blood, Stool non-Colorect Neoplasm Screen Positive A (Negative ) LAB--HEMATOLOGY from 12/06/2012 6:44 PMAbsolute Basophils 0.01 THOUS (0.00-0.20 THOUS) Absolute Eosinophils 0.08 THOUS (0.00-0.50 THOUS) Absolute Lymphocytes 1.24 THOUS (0.80-3.30 THOUS) Absolute Monocytes 0.36 THOUS (0.30-1.00 THOUS) Absolute Neutrophils 3.30 THOUS (1.90-7.00 THOUS) HCT 30.9 % L (37.0-47.0 %) HGB 10.0 g/dl L (12.0-16.0 g/dl) MCH 29.4 pg (27.0-32.0 pg) MCHC 32.4 g/dL (32.0-36.0 g/dL) MCV 90.9 fL (82.0-99.0 fL) MPV 10.4 fL (9.4-12.4 fL) Platelet Count 153 K/uL (150-400 K/uL) RBC 3.40 M/uL L (4.00-5.20 M/uL) RDW 14.0 % (11.5-14.5 %) WBC 5.0 K/uL (4.8-10.8 K/uL) Basophils 0 % (0-2 %) Eosinophils 2 % (0-4 %) Immature Granulocytes 0.2 % (0.0-1.0 %) Lymphocytes 25 % (20-46 %) Monocytes 7 % (4-11 %) Nucleated RBC Automated 0.0 /100 WBC (0 /100 WBC) Neutrophils 66 % (51-75 %) LAB--HEMATOLOGY from 12/07/2012 12:00 AMPlatelet Count 73 K/uL L (150-400 K/uL) LAB--HEMATOLOGY from 12/07/2012 4:21 AMHCT 31.9 % L (37.0-47.0 %) HGB 10.1 g/dl L (12.0-16.0 g/dl) MCH 29.0 pg (27.0-32.0 pg) MCHC 31.7 g/dL L (32.0-36.0 g/dL) MCV 91.7 fL (82.0-99.0 fL) MPV 10.1 fL (9.4-12.4 fL) Platelet Count 154 K/uL (150-400 K/uL) RBC 3.48 M/uL L (4.00-5.20 M/uL) RDW 14.1 % (11.5-14.5 %) WBC 5.2 K/uL (4.8-10.8 K/uL) LAB--HEMATOLOGY from 12/07/2012 11:30 AMHCT 31.3 % L (37.0-47.0 %) HGB 10.2 g/dl L (12.0-16.0 g/dl) MCH 29.5 pg (27.0-32.0 pg) MCHC 32.6 g/dL (32.0-36.0 g/dL) MCV 90.5 fL (82.0-99.0 fL) MPV 9.2 fL L (9.4-12.4 fL) Platelet Count 168 K/uL (150-400 K/uL) RBC 3.46 M/uL L (4.00-5.20 M/uL) RDW 14.1 % (11.5-14.5 %) WBC 10.3 K/uL (4.8-10.8 K/uL) LAB--HEMATOLOGY from 12/08/2012 4:13 AMAbsolute Basophils 0.00 THOUS (0.00-0.20 THOUS) Absolute Eosinophils 0.00 THOUS (0.00-0.50 THOUS) Absolute Lymphocytes 0.40 THOUS L (0.80-3.30 THOUS) Absolute Monocytes 0.47 THOUS (0.30-1.00 THOUS) Absolute Neutrophils 7.03 THOUS H (1.90-7.00 THOUS) HCT 21.9 % L (37.0-47.0 %) HGB 7.1 g/dl L (12.0-16.0 g/dl) MCH 29.3 pg (27.0-32.0 pg) MCHC 32.4 g/dL (32.0-36.0 g/dL) MCV 90.5 fL (82.0-99.0 fL) MPV 9.4 fL (9.4-12.4 fL) Platelet Count 138 K/uL L (150-400 K/uL) RBC 2.42 M/uL L (4.00-5.20 M/uL) RDW 14.8 % H (11.5-14.5 %) WBC 7.9 K/uL (4.8-10.8 K/uL) Bands 8 % (0-8 %) Basophils 0 % (0-2 %) Eosinophils 0 % (0-4 %) Lymphocytes 5 % L (20-46 %) Monocytes 6 % (4-11 %) Nucleated RBC Automated 0.0 /100 WBC (0 /100 WBC) Differential Manual A Neutrophils 81 % H (51-75 %) LAB--HEMATOLOGY from 12/08/2012 6:10 PMHCT 21.7 % L (37.0-47.0 %) HGB 7.2 g/dl L (12.0-16.0 g/dl) MCH 28.9 pg (27.0-32.0 pg) MCHC 33.2 g/dL (32.0-36.0 g/dL) MCV 87.1 fL (82.0-99.0 fL) MPV 9.8 fL (9.4-12.4 fL) Platelet Count 93 K/uL L (150-400 K/uL) RBC 2.49 M/uL L (4.00-5.20 M/uL) RDW 15.8 % H (11.5-14.5 %) WBC 7.3 K/uL (4.8-10.8 K/uL) LAB--HEMATOLOGY from 12/09/2012 3:54 AMHCT 26.2 % L (37.0-47.0 %) HGB 8.7 g/dl L (12.0-16.0 g/dl) MCH 29.1 pg (27.0-32.0 pg) MCHC 33.2 g/dL (32.0-36.0 g/dL) MCV 87.6 fL (82.0-99.0 fL) MPV 10.0 fL (9.4-12.4 fL) Platelet Count 86 K/uL L (150-400 K/uL) RBC 2.99 M/uL L (4.00-5.20 M/uL) RDW 16.0 % H (11.5-14.5 %) WBC 7.4 K/uL (4.8-10.8 K/uL) LAB--HEMATOLOGY from 12/10/2012 6:37 AMHCT 26.5 % L (37.0-47.0 %) HGB 8.7 g/dl L (12.0-16.0 g/dl) MCH 28.5 pg (27.0-32.0 pg) MCHC 32.8 g/dL (32.0-36.0 g/dL) MCV 86.9 fL (82.0-99.0 fL) MPV 10.4 fL (9.4-12.4 fL) Platelet Count 102 K/uL L (150-400 K/uL) RBC 3.05 M/uL L (4.00-5.20 M/uL) RDW 15.7 % H (11.5-14.5 %) WBC 7.4 K/uL (4.8-10.8 K/uL) LAB--HEMATOLOGY from 12/10/2012 6:13 PMHCT 30.1 % L (37.0-47.0 %) HGB 9.9 g/dl L (12.0-16.0 g/dl) LAB--HEMATOLOGY from 12/11/2012 3:25 AMHCT 30.0 % L (37.0-47.0 %) HGB 9.8 g/dl L (12.0-16.0 g/dl) MCH 29.2 pg (27.0-32.0 pg) MCHC 32.7 g/dL (32.0-36.0 g/dL) MCV 89.3 fL (82.0-99.0 fL) MPV 10.6 fL (9.4-12.4 fL) Platelet Count 130 K/uL L (150-400 K/uL) RBC 3.36 M/uL L (4.00-5.20 M/uL) RDW 15.4 % H (11.5-14.5 %) WBC 4.5 K/uL L (4.8-10.8 K/uL) LAB--HEMATOLOGY from 12/11/2012 9:48 AMHCT 29.4 % L (37.0-47.0 %) HGB 9.8 g/dl L (12.0-16.0 g/dl) LAB--HEMATOLOGY from 12/11/2012 3:57 PMHCT 28.6 % L (37.0-47.0 %) HGB 9.6 g/dl L (12.0-16.0 g/dl) LAB--HEMATOLOGY from 12/12/2012 4:29 AMHCT 26.2 % L (37.0-47.0 %) HGB 8.7 g/dl L (12.0-16.0 g/dl) LAB--HEMATOLOGY from 12/13/2012 5:41 AMHCT 28.8 % L (37.0-47.0 %) HGB 9.3 g/dl L (12.0-16.0 g/dl) MCH 28.8 pg (27.0-32.0 pg) MCHC 32.3 g/dL (32.0-36.0 g/dL) MCV 89.2 fL (82.0-99.0 fL) MPV 9.6 fL (9.4-12.4 fL) Platelet Count 181 K/uL (150-400 K/uL) RBC 3.23 M/uL L (4.00-5.20 M/uL) RDW 15.1 % H (11.5-14.5 %) WBC 4.9 K/uL (4.8-10.8 K/uL) LAB--HEMATOLOGY from 12/16/2012 8:11 AMHCT 29.7 % L (37.0-47.0 %) HGB 9.3 g/dl L (12.0-16.0 g/dl) MCH 28.6 pg (27.0-32.0 pg) MCHC 31.3 g/dL L (32.0-36.0 g/dL) MCV 91.4 fL (82.0-99.0 fL) MPV 9.0 fL L (9.4-12.4 fL) Platelet Count 270 K/uL (150-400 K/uL) RBC 3.25 M/uL L (4.00-5.20 M/uL) RDW 16.1 % H (11.5-14.5 %) WBC 5.8 K/uL (4.8-10.8 K/uL) LAB--MICROBIOLOGY from 12/06/2012 6:50 PMMRSA (Meth Res S aureus) Screen Source : Nasopharynx swab Collected: 12/06/12 18:50 Site: Received : 12/06/12 18:59 Order#: [id number] MRSA Screen FINAL 12/08/12 11:30 No Methicillin Resistant Staphylococcus aureus isolated. DEMARCO FOR RESULTS: * - NEW RESULT - RESULT WAS MODIFIED AFTER FINAL STATUS SET LAB--MICROBIOLOGY from 12/06/2012 8:05 PMUrine Culture A Source: Urine Collected: 12/06/12 20:05 Site: Clean Catch Received : 12/06/12 20:28 Order#: [id number] Urine Culture FINAL 12/09/12 07:22 Enterococcus faecalis 50-100,000 cfu/ml In addition to: Mixed harman indicative of vaginal and/or skin contamination E. faecal. Antibiotic NADYA INT Ampicillin <=2 S Gentamicin High [place] SYN-R R Nitrofurantoin 32 S Tetracycline >=16 R Vancomycin 1 S S=SUSCEPTIBLE I=INTERMEDIATE R=RESISTANT S-DD=SUSCEPTIBLE, DOSE DEPENDENT DEMARCO FOR RESULTS: * - NEW RESULT - RESULT WAS MODIFIED AFTER FINAL STATUS SET LAB--URINE TESTS from 12/06/2012 8:05 PMAppearance Clear Bilirubin Negative (Negative ) Blood Trace A (Negative ) Color Yellow Glucose Negative (Negative ) Ketones, Urine Negative (Negative ) Leukocytes Esterase Negative (Negative ) Nitrites Negative (Negative ) pH, Urine 8.0 (5.0-8.0 ) Protein Negative (Negative ) Specific [place] >=1.045 A (1.003-1.030 ) Collection Type: Clean Catch Urobilinogen Negative mg/dL (-<1.0 mg/dL) Epithelial Cells 2-5 /HPF RBC 0-2 /HPF (0-2 /HPF) WBC 0-2 /HPF (0-4 /HPF)
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
--- NOTE | 2016-06-12 15:38 | NUR ---
PROVIDER Monique SANTAMARIA APRN AT BEDSIDE FOR EXAM.
--- OUTSIDE RECORDS SUMMARY | 2016-06-12 15:38 | XMS REPORT | Referral Summary ---
Author Author [facility] Organization [facility] Address Unknown Phone Unavailable Care Team Providers Care Stenotype Machine Operator Name Role Phone Curtisshai Earl Primary Care Physician [phone] Encounter [facility] [id number] Date(s): 06/25/15 - 06/25/15 [facility] [address] [place] [address] [phone] Discharge Diagnosis: Cervical spine fracture Discharge Diagnosis: Low back pain Discharge Diagnosis: Fall Discharge Disposition: 01-Home or Self Care Attending Physician: Dario Dejesus DO Admitting Physician: Dario Dejesus DO Vital Signs Most recent to 1 oldest [Reference Range]: Temperature Oral 36.9 degC [35.8-37.3 degC] (06/25/15 4:58 AM) Peripheral Pulse 87 bpm Rate [60-100 bpm] (06/25/15 4:58 AM) Heart Rate Monitored 89 bpm [60-100 bpm] (06/25/15 7:53 AM) Respiratory Rate 16 br/min [14-20 br/min] (06/25/15 7:53 AM) Blood Pressure 107/74 mmHg [90-140/60-90 mmHg] (06/25/15 7:53 AM) Mean Arterial 78 mmHg Pressure, Cuff (06/25/15 5:29 AM) SpO2 100 % (06/25/15 7:53 AM) Problem List Condition Effective Dates Status [...] Infection in Nutrition Plan of Care 3Dr. [place] 4hospitalization 5Problem added automatically by system based [...] Tubal ligation, bilateral [facility] 3BACK [facility] 4in December 5left eye Social History Social History Type Response Smoking Status Former smoker; Type: Cigarettes; Tobacco use per day: Less than Pack Assessment and Plan No data available for this section
--- OUTSIDE RECORDS SUMMARY | 2016-06-12 15:38 | XMS REPORT | Referral Summary ---
Author Author [facility] Organization [facility] Address Unknown Phone Unavailable Care Team Providers Care Dynamometer Tester Engine Name Role Phone Earl Landa Primary Care Physician [phone] Encounter VC Date(s): 06/26/14 - 06/26/14 [facility] [address] [place] [id number] Discharge Diagnosis: Fatigue Discharge Diagnosis: Frailty Discharge Diagnosis: Pulse irregularity Discharge Diagnosis: Hypokalemia Discharge Disposition: 01-Home or Self Care Attending Physician: Syed Landa MD Admitting Physician: Syed Landa MD Vital Signs Most recent to 1 oldest [Reference Range]: Temperature Tympanic 35.2 degC [36.6-38.1 degC] *LOW* (06/26/14 10:26 AM) Peripheral Pulse 60 bpm Rate [60-100 bpm] (06/26/14 10:26 AM) Blood Pressure 98/55 mmHg [90-140/60-90 mmHg] (06/26/14 10:26 AM) Problem List Condition Effective Dates Status [...] Infection in Nutrition Plan of Care 3Dr. [place] 4hospitalization 5Problem added automatically by system based [...] MONTHLY, # 1 boxes, 3 Refill(s), Pharmacy: [facility], USE WITH VITAMIN B 12 ONE [...] qMonth, # 3 mL, 3 Refill(s), Pharmacy: [facility], 1 mL IntraMuscular qMonth Start Date: [...] recent to 1 oldest [Reference Range]: WBC [5.0-10.0 8.7 10*3/uL 10*3/uL] (06/26/14 11:30 AM) RBC [3.70-5.20 5.20 10*6/uL 10*6/uL] (06/26/14 11:30 AM) Hgb [12.0-16.0 17.0 gm/dL gm/dL] *HI* (06/26/14 11:30 AM) Hct [37.0-47.0 %] 51.0 % *HI* (06/26/14 11:30 AM) MCV [80.0-96.0 fL] 98.1 fL *HI* (06/26/14 11:30 AM) MCH [26.0-34.0 pg] 32.7 pg (06/26/14 11:30 AM) MCHC [32.0-36.0 33.3 gm/dL gm/dL] (06/26/14 11:30 AM) RDW [0.0-14.5 %] 12.9 % (06/26/14 11:30 AM) Platelet [150-400 150 10*3/uL 10*3/uL] (06/26/14 11:30 AM) MPV [8.8-14.8 fL] 9.9 fL (06/26/14 1130 AM) Neutrophils [50-70 82 % %] *HI* (06/26/1430 AM) Lymphocytes [20-40 8 % %] *LOW* (06/26/1430 AM) Monocytes [4-8 %] 9 % *HI* (06/26/1430 AM) Eosinophils [0-6 %] 1 % (06/26/1430 AM) Basophils [0-2 %] 0 % (06/26/14:30 AM) Neutro Absolute 7.14 10*3 [2.50-7.00 10*3] *HI* (06/26/14:30 AM) Lymph Absolute 0.70 10*3 [1.00-4.00 10*3] *LOW* (06/26/14 11:30 AM) Curry Absolute 0.77 10*3 [0.20-0.80 10*3] (06/26/14 11:30 AM) Eos Absolute 0.06 10*3 [0.00-0.60 10*3] (06/26/14 11:30 AM) Baso Absolute 0.03 10*3 [0.00-0.30 10*3] (06/26/14 11:30 AM) Immunizations No data available for this section [...] Tubal ligation, bilateral [facility] 3BACK SURGERY 4in December 5left eye Social History Social History Type Response Smoking Status Former smoker; Type: Cigarettes; Tobacco use per day: Less than Pack Assessment and Plan Extracted from: Title: Office Visit Note evaluation Author: Syed Landa MD Date: of fatigue Assessment/Plan Fatigue Frailty Hypokalemia Mild hypokalemia with potassium 3.4 was seen. We'll start on some potassium replacement for a few days. Pulse irregularity Ordered: EKG with Interpretation [id number] Orders: potassium chloride, 10 mEq 1 tabs, Oral, BID, # 10 tabs, 0 Refill(s), Pharmacy: [facility], 1 tabs Oral BID Evaluation included stat CBC, BMP, and EKG. No marked abnormalities seen although she does have the frequent PVCs as described above. A TSH was also ordered but that result is still pending. I encouraged increased fluids. I asked her whether she judged her problem to be more physical or psychological, and she thinks it's most likely related to motivation and depression. I encouraged her to follow-up with Dr. [place].
--- OUTSIDE RECORDS SUMMARY | 2016-06-12 15:38 | XMS REPORT | Referral Summary ---
Author Author [facility] Organization [facility] Address Unknown Phone Unavailable Care Team Providers Care General Sales Manager Name Role Phone Earl Landa Primary Care Physician [phone] Encounter VC Date(s): 05/09/15 - 05/09/15 [facility] [address] [place] [address] Discharge Diagnosis: Chronic pain syndrome Discharge Disposition: 01-Home or Self Care Attending Physician: Syed Landa MD Admitting Physician: Syed Landa MD Vital Signs Most recent to 1 oldest [Reference Range]: Temperature Tympanic 37.2 degC [36.6-38.1 degC] (05/09/15 11:14 AM) Peripheral Pulse 92 bpm Rate [60-100 bpm] (05/09/15 11:14 AM) Blood Pressure 112/82 mmHg [90-140/60-90 mmHg] (05/09/15 11:14 AM) Problem List Condition Effective Dates Status [...] 0 Refill(s) Start Date: 04/29/15 Status: Ordered [place] 5 mg-325 mg oral tablet 1 tabs, [...] Visit Note Author: Syed Landa MD Date: 05/09/15 Assessment/Plan Chronic pain syndrome Orders: denosumab, 60 mg 1 mL, SubCutaneous, q6mo, # 1 mL, 0 Refill(s), other reason (Rx) Overall she seems to be doing fairly well. From a pain control standpoint she is not needing the MS Contin. She has [place] for when necessary use but is not needing it very often. We'll plan to continue that approach and less her problems change. Follow-up as already planned with Dr. Garcia. Follow- up with me when necessary.
--- OUTSIDE RECORDS SUMMARY | 2016-06-12 15:38 | XMS REPORT | Referral Summary ---
Author Author [facility] Organization [facility] Address Unknown Phone Unavailable Care Team Providers Care Scientific Affairs Manager Name Role Phone Earl Landa Primary Care Physician [phone] Encounter VC Date(s): 12/11/14 - 12/11/14 [facility] [address] [place] [address] [place] [id number] Discharge Diagnosis: Visit for suture removal Discharge Disposition: 01-Home or Self Care Attending Physician: Catherine Hamilton APRN Admitting Physician: Catherine Hamilton APRN Referring Physician: Syed Landa MD Vital Signs Most recent to 1 oldest [Reference Range]: Temperature Tympanic 37.1 degC [36.6-38.1 degC] (12/11/14 10:01 AM) Problem List Condition Effective Dates Status [...] MONTHLY, # 1 boxes, 3 Refill(s), Pharmacy: [facility], USE WITH VITAMIN B 12 ONE TIME [...] qMonth, # 3 mL, 3 Refill(s), Pharmacy: [facility], 1 mL IntraMuscular qMonth Start Date: 09/20/13 [...] 2Dr. [facility] 3BACK SURGERY 4in December 5left eye Social History Social History Type Response Smoking Status Former smoker; Type: Cigarettes; Tobacco use per day: Less than Pack Assessment and Plan Extracted from: Title: Office Visit Note Author: Catherine Hamilton BANKER MASON Date: 12/11/14 Assessment/Plan 1.Visit for suture removal Sutures removed without difficulty and antibiotic ointment applied. Pathology indicatespreviously biopsied skin with pseudo-epitheliomatous hyperplasia. No residual squamous atypia is identified. Margins of excision are free of involvement. Skin lesions pointed out are allconsistent with seborrheic keratosis, benign aging spots. He see any spotssimilar to thesquamous atypia on your leg please return to our office for further evaluation. Ordered: Postoperative Est [id number]
--- OUTSIDE RECORDS SUMMARY | 2016-06-12 15:38 | XMS REPORT | Referral Summary ---
Author Author [facility] Organization [facility] Address Unknown Phone Unavailable Care Team Providers Care Certified Court Interpreter Name Role Phone Earl Landa Primary Care Physician [phone] Encounter VC Date(s): 09/11/15 - 09/11/15 [facility] [address] [place] [address] Discharge Diagnosis: Parotid mass Discharge Diagnosis: Cervical spine fracture Discharge Diagnosis: Chronic pain syndrome Discharge Diagnosis: Depression Discharge Diagnosis: Urine frequency Discharge Disposition: -Home or Self Care Attending Physician: Syed Landa MD Admitting Physician: Syed Landa MD Vital Signs Most recent to 1 oldest [Reference Range]: Peripheral Pulse 65 bpm Rate [60-100 bpm] (09/11/15 10:56 AM) Respiratory Rate 18 br/min [14-20 br/min] (09/11/15 10:56 AM) Blood Pressure 120/68 mmHg [90-140/60-90 mmHg] (09/11/15 10:56 AM) SpO2 98 % (09/11/15 10:56 AM) Problem List Condition Effective Dates Status [...] Refill(s) Start Date: 11/06/14 Status: Ordered Results Urinalysis Most recent to 1 oldest [Reference Range]: UA Color Yellow (09/11/15 12:00 PM) UA Appear Clear (09/11/15 12:00 PM) UA pH [5.0-8.0] 6.0 (09/11/15 12:00 PM) UA Leuk Est Negative [Negative] (09/11/15 12:00 PM) UA Nitrite Negative [Negative] (09/11/15 12:00 PM) UA Protein Negative [Negative] (09/11/15 12:00 PM) UA Glucose Negative [Negative] (09/11/15 12:00 PM) UA Ketones Negative [Negative] (09/11/15 12:00 PM) UA Urobilinogen 0.2 mg/dL [<1.0 mg/dL] (09/11/15 12:00 PM) UA Bili [Negative] Negative (09/11/15 12:00 PM) UA Blood [Negative] Negative (09/11/15 12:00 PM) UA Spec Grav 1.007 [1.003-1.030] (09/11/15 12:00 PM) Type Clean Catch (09/11/15 12:00 PM) Immunizations No data available for this [...] Pack Assessment and Plan Extracted from: Title: CDM-OV* Author: Syed Landa MD Date: 09/11/15 Impression and Plan Diagnosis Depression (ZTU11-WD F32.9, Discharge, Medical). Chronic pain syndrome (LCY29-AM G89.4, Discharge, Medical). Parotid mass (KRD05-YU R22.0, Discharge, Medical). Urine frequency (QGY95-CK R35.0, Discharge, Medical). Cervical spine fracture ([id number]-EX S12.9XXA, Discharge, Medical).
--- OUTSIDE RECORDS SUMMARY | 2016-06-12 15:38 | XMS REPORT ---
Author Author Manjinder Alvarado Organization [employer] Address Unknown Phone Unavailable Care Team Providers Care Final Dressing Cutter Name Role Phone Manjinder Alvarado CP Unavailable [...] S/P Mitral Valve Replacement V43.3 Active Medications Medication Code System Code Instructions Start Date End Date Status Dosage Coreg [facility] [address]-81 12.5 MG Orally twice a day August 05, 2015 1 tablet Results No Known Results Summary Purpose [employer] Submission
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
--- OUTSIDE RECORDS SUMMARY | 2016-06-12 15:42 | XMS REPORT ---
Author Author [facility] - Organization Unknown Address Unknown Phone Unavailable Allergies, Adverse Reactions, Alerts * Darvocet-N 100 causes Adverse Reaction and Unknown Adverse Reaction. * [place] causes Moderate Adverse Reaction. * Haldol causes [...] the responsibility of the patient or patient representative personal service to confirm the list of medications with either the patient's personal care provider or the patient's follow-up care provider to ensure the patient has an appropriate list of medications to take at home. Discharge medications* ALPRAZolam 2 mg Tablet, Ordered By: Luiz Dumont Directions: 1 tablet oral three times a day PRN anxiety * traZODone 50 mg Tablet, Ordered By: Luiz uDmont Directions: 1.5 tablet oral daily at bedtime [...] during meal Additional Instructions: 325MG FERR SULF=65MG CHILKAT IRON * furosemide 40 mg Tablet, Ordered [...] from 12/06/2012 7:31 PMRed Blood Cells Leukoreduced [id number] selected (Preliminary Result) LAB--BLOOD BANK from 12/07/2012 6:42 AMRed Blood Cells Leukoreduced [id number] p.Transfused LAB--BLOOD BANK from 12/07/2012 6:49 AMRed Blood Cells Leukoreduced ( Preliminary Result)[id number] selected [id number] selected LAB--BLOOD BANK from 12/07/2012 10:34 AMPlatelet Pheresis Leukoreduced [id number] p.Transfused LAB--BLOOD BANK from 12/08/2012 8:40 AMRed Blood Cells Leukoreduced [id number] selected (Preliminary Result) LAB--BLOOD BANK from 12/08/2012 8:42 AMRed Blood Cells Leukoreduced [id number] p.Transfused LAB--BLOOD BANK from 12/08/2012 6:51 PMRed Blood Cells Leukoreduced [id number] selected (Preliminary Result) LAB--BLOOD BANK from 12/08/2012 6:55 PMRed Blood Cells Leukoreduced [id number] p.Transfused LAB--BLOOD BANK from 12/10/2012 1:10 AMRed [...] 18:50 Site: Received : 12/06/12 18:59 Order#: [id number] MRSA Screen FINAL 12/08/12 11:30 No Methicillin Resistant Staphylococcus aureus isolated. DEMARCO FOR RESULTS: * - NEW RESULT - RESULT WAS MODIFIED AFTER FINAL STATUS SET LAB--MICROBIOLOGY from 12/06/2012 8:05 PMUrine Culture A Source: Urine Collected: 12/06/12 20:05 Site: Clean Catch Received : 12/06/12 20:28 Order#: [id number] Urine Culture FINAL 12/09/12 07:22 Enterococcus faecalis [...] (5.0-8.0 ) Protein Negative (Negative ) Specific [place] >=1.045 A (1.003-1.030 ) Collection Type: Clean Catch Urobilinogen Negative mg/dL (-<1.0 mg/dL) Epithelial Cells 2-5 /HPF RBC 0-2 /HPF (0-2 /HPF) WBC 0-2 /HPF (0-4 /HPF)
[2016-06-12] MEDS ORDERED: NORMAL SALINE 1,000 ML IV ONE (15:45)
[2016-06-12 16:00] LABS: BASOPHILS % (AUTO) 0.3 % (0-2); EOSINOPHILS # (AUTO) 0.1 T/MM3 (0-0.5); EOSINOPHILS % (AUTO) 1.4 % (0-4); HCT - HEMATOCRIT 36.8 % (36-46); HGB - HEMOGLOBIN 11.5 GM/DL (12-16); IMMATURE GRANULOCYTE # (AUTO) 0.03 T/MM3 (0.00-0.03); IMMATURE GRANULOCYTE % (AUTO) 0.5 % (0.0-0.5); LYMPHOCYTES # (AUTO) 1.2 T/MM3 (1-4.8); LYMPHOCYTES % (AUTO) 17.8 % (23-45); MEAN CORPUSCULAR HGB 28.8 UUG (26-34); MEAN CORPUSCULAR HGB CONC(MCHC 31.3 GM/DL (31-37); MEAN PLATELET VOLUME 9.2 UM3 (9.4-12.4); MONOCYTES # (AUTO) 0.5 T/MM3 (0-0.8); MONOCYTES % (AUTO) 8.2 % (0-9.0); NEUTROPHILS #(AUTO)-ABSOLUTE 4.6 T/MM3 (1.8-7.7); NEUTROPHILS % (AUTO) 71.8 % (33-66); WBC - WHITE BLOOD COUNT 6.5 T/MM3 (4.5-11.0)
[2016-06-12 16:04] LABS: BLOOD, URINE NEGATIVE (NEGATIVE); COLOR,URINE YELLOW (YELLOW); LEUKOCYTE ESTERASE ,URINE NEGATIVE (NEGATIVE); NITRITE,URINE NEGATIVE (NEGATIVE); UROBILINOGEN,URINE 0.2 EU/DL (NORMAL)
[2016-06-12 16:05] LABS: ANION GAP 13 MEQ/L (5-15); BUN/CREATININE RATIO 16 RATIO (6-26); CALCIUM 8.4 MG/DL (8.4-10.2); CHLORIDE 113 MEQ/L (98-107); CO2 - CARBON DIOXIDE 21 MEQ/L (22-30); CREATININE 0.9 MG/DL (0.7-1.2); GLOMERULAR FILTRATION RATE 63; GLUCOSE 97 MG/DL (65-110); POTASSIUM 3.7 MEQ/L (3.6-5); SODIUM 147 MEQ/L (134-144)
--- NOTE | 2016-06-12 16:06 | NUR ---
RADIOLOGY PT TO RADIOLOGY PER CART
--- NOTE | 2016-06-12 16:15 | NUR ---
RADIOLOGY MS FROM RADIOLOGY PER CART
--- NOTE | 2016-06-12 16:33 | DI ---
INDICATION: ITS.REASON: shortness of breath PROCEDURE: CHEST 2-VIEWS UPRIGHT (PA \T\ LAT) Encounter: Initial COMPARISON: August 25, 2009 FINDINGS: Interval sternotomy changes and cardiac valve replacement. Worsening scoliosis. Multiple subacute to chronic bilateral rib fractures. No focal consolidative pneumonia, pleural effusion or pneumothorax. Heart size and mediastinal contours are stable. Pulmonary vascularity is normal. Age-indeterminate mid and lower thoracic compression fractures, two of which are moderate to severe. Impression: No focal pneumonia or congestive failure. .
--- NOTE | 2016-06-12 16:39 | ERPDOC ---
Departure Disposition Decision Date: June 12, 2016 Disposition Decision Time: 16:43 Disposition: 01 DISCHARGED HOME, SELF-CARE Impression Impression Impression: Primary Impression: Influenza B Additional Impression: Weakness Severity: Moderate Condition: Stable Seen By: Mid-level only Referrals: NATALIE VELAZQUEZ MD (Family) Patient Instructions: Influenza (ED) Problems/Meds/Labs Reviewed?: Yes Medications reviewed and manag: Yes Additional Instructions: I do want you to make sure you are drinking plenty of fluids at home and resting. Home health will follow up with you tomorrow to see how you are doing at home. Follow up on Wednesday with Dr Velazquez if you are not feeling better. Continue to take the Tamiflu as prescribed. Follow up care ordered?: Yes Mental Status: Alert, Oriented HPI - Cough/URI General Chief Complaint: Cough,Fever,Flu,URI Stated Complaint: FLU LIKE SYMPTOMS Time Seen by Provider: 15:30 Source: patient Exam Limitations: no limitations HPI - Cough/URI Initial Comments For the last 2 weeks she has not felt well. Had went to her PCP office on Wednesday and was admitted to [facility] for possible seratonin syndrome. Had a swab there and was diagnosed with Influenza B. Was sent home from the hospital yesterday. She does live alone and so had not wanted to be dismissed to home. She states that she is concerned for her safety. She has no one to get her water or food at home or to assist her to the bathroom. She was started on Tamiflu and has been taking this. Has not had a fever. Has been having a cough and some dry heaves but no diarrhea. Is having generalized body aches. Occurred At: home Onset/Timing: Gradual Duration: other (Over the last 2 weeks) Prior Episodes/Possible Cause: no prior episodes Associated Symptoms: cough, fever/chills, lightheadedness, muscle aches, nasal congestion, shortness of breath, DENIES: chest pain/soreness, dizziness, earache , facial pain, headache, nasal drainage, sinus infection, sore throat, wheezing Hx of Similar Symptoms: No Allergies: Coded Allergies: Sulfa (Sulfonamide Antibiotics) (Verified Allergy, Unknown, 06/12/16) buspirone (Verified Allergy, Unknown, 06/12/16) clavulanic acid (Verified Allergy, Unknown, 06/12/16) metronidazole (Verified Allergy, Unknown, 06/12/16) propoxyphene (Verified Allergy, Unknown, 06/12/16) amoxicillin (Verified Adverse Reaction, Intermediate, STOMACH CRAMPS WITH AUGMENTIN, 06/12/16) haloperidol (Verified Adverse Reaction, Unknown, "GOES CRAZY", 06/12/16) lorazepam (Verified Adverse Reaction, Unknown, "OFF THE DEEP END", 06/12/16) Uncoded Allergies: 6-MP (Allergy, Unknown, 08/24/09) Past History Past Medical History ENMT: cataracts, other Cardiac: other GI: crohn's, other Neurological: CVA, fibromyalgia Musculoskeletal: back pain, osteoarthritis, other Psychological: anxiety, depression Surgical History General: back, other Joint: other Family History Family PMH: FOUND: depression, other Vaccines Hx Influenza Vaccination: No (unknown date) Hx Pneumococcal Vaccination: No (unknown date) Social History Smoking Status: Never smoker Substance Use Type: does not use Alcohol Intake: none Review of Systems Constitutional Constitutional: appetite decrease, chills, fatigue, weakness, DENIES: dizziness , fever ENMT Ears: DENIES: drainage, pain Sinuses: DENIES: congestion, rhinorrhea Mouth/Throat: DENIES: painful swallowing, scratchy throat, sore throat Cardiovascular Cardiac: DENIES: chest pain, orthopnea Rhythm/Rate: DENIES: irregular beat, palpitations Pulmonary Respiratory: cough, DENIES: dyspnea, sputum, tachypnea GI Upper Abdomen: nausea, DENIES: pain, vomiting Lower Abdomen: DENIES: constipation, diarrhea, pain Integumentary Skin: DENIES: rash Neurological General: DENIES: headache, numbness, tingling, weakness Physical Exam General General Nourishment: well nourished, well developed, appears stated age, no acute distress, adult General Body Habitus: well groomed Vitals and Pain First Documented Vital Signs Date Time Temp Pulse Resp B/P Pulse Ox O2 Delivery O2 Flow Rate FiO2 06/12/16 15:30 97.7 80 22 140/85 98 Room Air Weight: Kilograms: 60.800 Height (feet): 5 Height (inches): 6.00 Triage Pain Scale: RN VS reviewed by Provider: Yes Normal Exams: Neck: Full range of motion, without adenopathy, JVD, bruits or thyromegaly Chest/Resp: Clear all brasher, with good airflow, and symmetry bilaterally CV: Regular rate and rhythm, without murmur or gallop, Pulses 2+ all extremities, capillary refill, <2 seconds all ext., no pedal edema noted Abdomen: Bowel sounds positive, soft, non-tender, non-distended, no hepatosplenomegaly, masses or bruits noted Lymphatic: No lymphadenopathy, or lymphedema noted Integumentary: No rashes, hives, or bruising noted Neurologic: Patient is alert, and oriented Psychiatric: Patient exhibits, appropriate attention, emotion and affect ENMT (brief) ENMT Brief: FOUND: TM clear, TM good light reflex, ear canals clear, mucosa moist, normal dentition, normal tonsils, NOT FOUND: lesions, nasal erythema, nasal exudate, nasal swelling, petechiae, pharnyx erythema, tonsillar deviation Differential Diagnoses Differential Diagnoses Considering: Influenza, Otitis Media, Pharyngitis, Pneumonia, Sinusitis, URI, Viral Syndrome Progress Results/Orders Orders Procedure Category Date Status Time Chest, Pa & Lateral RAD 06/12/16 Resulted Cbc W/Auto LAB 06/12/16 Complete Diff-Reflex Manual Bmp - Basic Metabolic LAB 06/12/16 Complete Panel Iv Lock (Ed Only) EDM 06/12/16 Transmitted 15:42 Normal Saline (Normal PHA 06/12/16 Complete Saline Iv) 15:45 UA, LAB 06/12/16 Complete Dip&Micro(Complete) & 15:59 Lab Results Laboratory Tests Test 06/12/16 15:51 06/12/16 15:59 White Blood Count 6.5T/MM3 Red Blood Count 4.00M/MM3 Hemoglobin 11.5GM/DL Hematocrit 36.8% Mean Corpuscular Volume 92.0UM3 Mean Corpuscular Hemoglobin 28.8UUG Mean Corpuscular Hemoglobin Concent 31.3GM/DL RDW Standard Deviation 43.1FL Platelet Count 344T/MM3 Mean Platelet Volume 9.2UM3 Immature Granulocyte % (Auto) 0.5% Neutrophils (%) (Auto) 71.8% Lymphocytes (%) (Auto) 17.8% Monocytes (%) (Auto) 8.2% Eosinophils (%) (Auto) 1.4% Basophils (%) (Auto) 0.3% Absolute Immature Granulocyte (auto 0.03T/MM3 Absolute Neutrophils (auto) 4.6T/MM3 Absolute Lymphocytes (auto) 1.2T/MM3 Absolute Monocytes (auto) 0.5T/MM3 Absolute Eosinophils (auto) 0.1T/MM3 Absolute Basophils (auto) 0.0T/MM3 Turbidity < 20 Sodium Level 147MEQ/L Potassium Level 3.7MEQ/L Chloride Level 113MEQ/L Carbon Dioxide Level 21MEQ/L Anion Gap 13MEQ/L Blood Urea Nitrogen 14.0MG/DL Creatinine 0.9MG/DL Glomerular Filtration Rate Calc 63 BUN/Creatinine Ratio 16RATIO Glucose Level 97MG/DL Calculated Osmolality 283MOSM/KG Calcium Level 8.4MG/DL Icterus Index < 2 Chemistry Specimen Hemolysis 31 Urine Collection Type Cleancatch-midstream Urine Color Yellow Urine Turbidity Clear Urine pH 6.5 Urine Specific [place] 1.025 Urine Protein 2+ Urine Glucose (UA) Negative Urine Ketones Negative Urine Blood Negative Urine Nitrite Negative Urine Bilirubin Negative Urine Urobilinogen 0.2EU/DL Urine Leukocyte Esterase Negative Urine RBC /HPF Urine WBC /HPF Urine Bacteria Medications Current ED Medications Sodium Chloride (Normal Saline IV) 1,000 ml @ 1,000 mls/hr Q1H ONCE IV Last administered on 06/12/16t 16:18; Start 06/12/16 at 15:45; Stop 06/12/16 at 16:44; Status DC Progress Progress CBC is normal. BMP is normal. Chest xray is clear. UA is clear today as well. Will go ahead and dismiss to home. She again reports that she wants to be admitted as she lives alone. Did discuss this with the social services analyst. We can admit her if she signed a consent to be billed as self pay. Can admit to nursing facility but again would be self pay. Or we could try for home health to check on her. She does opt for the home health to check on her over the weekend. Did encourage her to continue to drink plenty of fluids at home and continue with the Tamiflu. Xray Xray : Reason for Exam: fever, fatigue Xray: CXR PA/Lat Interpretation: Normal JUAN SANTAMARIA WATERSHED COORDINATOR June 12, 2016 16:39
--- NOTE | 2016-06-12 16:45 | NUR ---
AERONAUTICAL TEST ENGINEER AERONAUTICAL TEST ENGINEER COMING TO SEE PT
--- NOTE | 2016-06-12 17:21 | NUR ---
ED CONSULT THIS WORKER MET WITH PT IN ED. PT REQUESTED HOME HEALTH SERVICES. PT HAS A NEIGHBOR FOR SUPPORT. PT REQUESTED [facility]IA [facility] FOR FOLLOW UP. PT DENIED OTHER NEEDS AT THIS TIME. Addendum: 06/12/16 at 1722 by REGGIE NAVARRETE Amended: Links added.
[2016-06-12 17:40] VITALS: BP 128/79; PULSE 68; RESP 18; TEMP 97.8; O2SAT 98
== END 2016-06-12 17:40 | disposition home or self-care (01) ==
LOC: ED 15:27
DX: J10.1 Influenza due to other identified influenza virus with other respiratory manifestations (principal); R53.1 Weakness
CPT/HCPCS: 71020; 80048; 81001; 85025; 96360; 99283; J7030